=== PATIENT | female | born 1955 | race Caucasian/White ===

== ENCOUNTER → 2019-12-01 11:39 | Outpatient (BNVA) | payer OTHER, SELFPAY | PROVIDERS: Family Provider Nurse Practitioner Family; PCP Nurse Practitioner Family; Visit Provider Registered Nurse | DX: R06.02 Shortness of breath (principal) | CPT/HCPCS: 80053; 80061; 84484; 85025 ==

== ENCOUNTER → 2021-02-22 09:38 | Outpatient (BNVA) | payer MEDICARE, SELFPAY | PROVIDERS: Family Provider Nurse Practitioner Family; PCP Nurse Practitioner Family; Visit Provider Nurse Practitioner Family | DX: I10 Essential (primary) hypertension (principal); R60.9 Edema, unspecified | CPT/HCPCS: 80053; 80061 ==

== ENCOUNTER → 2021-05-03 09:58 | Outpatient (BNVA) | payer MEDICARE, SELFPAY | PROVIDERS: Family Provider Nurse Practitioner Family; PCP Nurse Practitioner Family; Visit Provider Nurse Practitioner Family | DX: R30.0 Dysuria (principal) | CPT/HCPCS: 81000; 87086 ==

== ENCOUNTER → 2021-09-10 08:58 | Outpatient (BNVA) | payer MEDICARE, SELFPAY | PROVIDERS: Family Provider Nurse Practitioner Family; PCP Nurse Practitioner Family; Visit Provider Nurse Practitioner Family | DX: R39.9 Unspecified symptoms and signs involving the genitourinary system (principal); M25.552 Pain in left hip; N39.0 Urinary tract infection, site not specified | CPT/HCPCS: 80048; 81000; 87086 ==

== ENCOUNTER 2021-11-05 08:51 | Outpatient (CLI) | payer MEDICARE, SELFPAY ==
--- NOTE | 2021-11-05 09:30 | US_ITS ---
WS: [id number] ULTRASOUND RENAL TECHNIQUE: Ultrasound examination of both kidneys. CLINICAL INFORMATION: R31.9 - Hematuria, unspecified COMPARISON: None. FINDINGS: RIGHT: Right kidney is normal in size and appearance. Echogenicity: Normal. Cortical thickness: 1.7 cm; Normal. Hydronephrosis: None. Perinephric fluid: None. Right kidney measures: 10.4 cm x 4.8 cm x 5.6 cm. LEFT: Left kidney is normal in size and appearance. Echogenicity: Normal. Cortical thickness: 1.5 cm; Normal. Hydronephrosis: None. Perinephric fluid: None. Left kidney measures: 10.7 cm x 4.2 cm x 4.5 cm. Normal visualized aorta. Prevoid bladder 28 cc Postvoid bladder 7 cc US/US renal BI with PV bladder IMPRESSION: 1. No hydronephrosis in either kidney. Bilateral ureteral jets visualized. 2. Postvoid bladder 7 cc.
== END 2021-11-05 08:52 | disposition home or self-care (01) ==
LOC: RAD 08:55
PROVIDERS: PCP Nurse Practitioner Family; Visit Provider Nurse Practitioner Family
DX: R31.9 Hematuria, unspecified (principal)
CPT/HCPCS: 76770; 76857

== ENCOUNTER → 2022-06-10 09:11 | Outpatient (BNVA) | payer MEDICARE, SELFPAY | PROVIDERS: PCP Nurse Practitioner Family; Visit Provider Nurse Practitioner Family | DX: I10 Essential (primary) hypertension (principal); R31.9 Hematuria, unspecified; R30.0 Dysuria | CPT/HCPCS: 80053; 80061; 81000; 87086 ==

== ENCOUNTER → 2022-06-12 10:10 | Outpatient (BNVA) | payer MEDICARE, SELFPAY | PROVIDERS: PCP Nurse Practitioner Family; Visit Provider Nurse Practitioner Family | DX: R73.09 Other abnormal glucose (principal) | CPT/HCPCS: 83036 ==

== ENCOUNTER → 2024-10-28 11:31 | Outpatient (BNVA) | payer MEDICARE, SELFPAY | PROVIDERS: PCP Nurse Practitioner Family; Visit Provider Nurse Practitioner Family | DX: I10 Essential (primary) hypertension (principal); R53.83 Other fatigue | CPT/HCPCS: 80053; 80061; 84439; 84443; 85025 ==

== ENCOUNTER 2024-11-03 13:40 | Outpatient (CLI) | payer MEDICARE, SELFPAY ==
--- NOTE | 2024-11-03 14:00 | MM_ITS ---
WS: [id number] BILATERAL SCREENING DIGITAL TOMOSYNTHESIS MAMMOGRAM WITH CAD HISTORY: Z12.39 - Encounter for other screening for malignant neop... COMPARISON: 03/20/2014 Bilateral CC and MLO views with tomosynthesis and synthetic mammography submitted. Computer aided det ection analyzed. Breast composition: There are scattered areas of fibroglandular density. No suspicious masses, microc alcifications or architectural distortion. Stable high density nodule upper outer quadrant RIGHT rebeca st since 2013. MM/MM scr BI tomosynthesis [id number] IMPRESSION: BI-RADS: 2 - Benign. FOLLOW UP: 1 Year Follow-up
--- NOTE | 2024-11-03 14:30 | XR_ITS ---
WS: [id number] SCREENING DEXA SCAN [employer] CLINICAL INFORMATION: M81.0 - Age-related osteoporosis without current patholog... COMPARISON: None. FINDINGS: The L1-L4 bone mineral density measures 0.846 g/cm2. This corresponds to a T score score of -2.8 and Z score of -1.5. Left femoral neck bone mineral density measures 0.721 g/cm2. This corresponds to a T score of -2.3 an d Z score of -1.1. Right femoral neck bone mineral density measures 0.692 g/cm2. This corresponds to a T score -2.5of an d Z score of -1.3. Mean femoral neck bone mineral density measures 0.706 g/cm2. This corresponds to a T score of -2.4 an d Z score of -1.2. XR/XR DEXA axial skeleton* [id number] IMPRESSION: Osteoporosis lumbar spine. Osteoporosis femoral necks. Patient's FRAX calculated 10 year probability for major osteoporotic fracture i s 26.8% and osteoporotic hip fracture is 8.4%.
== END 2024-11-03 13:41 | disposition home or self-care (01) ==
LOC: RAD 13:40
PROVIDERS: PCP Nurse Practitioner Family; Visit Provider Nurse Practitioner Family
DX: Z12.31 Encounter for screening mammogram for malignant neoplasm of breast (principal); R92.323 Mammographic fibroglandular density, bilateral breasts; N63.11 Unspecified lump in the right breast, upper outer quadrant; Z13.820 Encounter for screening for osteoporosis; M81.0 Age-related osteoporosis without current pathological fracture
CPT/HCPCS: 77063; 77067; 77080

== ENCOUNTER → 2025-06-06 14:17 | Outpatient (BNVA) | payer MEDICARE, SELFPAY | PROVIDERS: PCP Nurse Practitioner Family; Visit Provider Nurse Practitioner Family | DX: I10 Essential (primary) hypertension (principal); R53.83 Other fatigue | CPT/HCPCS: 80053; 80061; 85025 ==

== ENCOUNTER → 2025-08-29 10:21 | Outpatient (BNVA) | payer MEDICARE, SELFPAY | PROVIDERS: PCP Nurse Practitioner Family; Visit Provider Nurse Practitioner Family | DX: I10 Essential (primary) hypertension (principal); R73.09 Other abnormal glucose | CPT/HCPCS: 80053; 80061; 83036; 84443 ==

== ENCOUNTER 2025-09-20 01:43 | Inpatient (IN) | payer MEDICARE, SELFPAY ==
[2025-09-20] VITALS (62 sets, daily range): BP systolic 77–111; BP diastolic 44–82; PULSE 61–105; RESP 15–32; TEMP 37.1–38.2; O2SAT 88–96; BMI 30.9; BMI 32.7
--- NOTE | 2025-09-20 01:23 | XRR_ITS ---
PROCEDURE INFORMATION: Exam: XR Chest Exam date and time: 09/20/2025 1:41 AM Age: 70 years old Clinical indication: Shortness of breath TECHNIQUE: Imaging protocol: Radiologic exam of the chest. Views: 1 view. COMPARISON: No relevant prior studies available. FINDINGS: Lungs: Unremarkable. No consolidation. Pleural spaces: Unremarkable. No pleural effusion. No pneumothorax. Heart/Mediastinum: Unremarkable. No cardiomegaly. Bones/joints: Unremarkable. XR/XR chest 1V portable [id number] IMPRESSION: No acute findings.
--- OUTSIDE RECORDS SUMMARY | 2025-09-20 01:59 | XMS_ITS | Encounter Summary ---
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
--- OUTSIDE RECORDS SUMMARY | 2025-09-20 01:59 | XMS_ITS | Clinical Summary ---
Author Organization [facility] Address [address] [facility] Attn: Epic Prelude ADT FELIZ MCNAMARA, [place] [address] Care Team Providers Care Radiologic Electronic Specialist Name Role Phone Unavailable Primary Care Provider Unavailabl e Allergies Active Allergy Reactions Criticality Noted Date Comments Atorvastatin Muscle Pain Low 08/04/2022 Medications aspirin (ECOTRIN EC) 81 mg Tablet, Delayed Release (E.C.) Take 1 Tablet (81 mg) by mouth daily. 06/02/2022 Active sennosides (SENOKOT XTRA) 17.2 mg Tablet tablet Take 1 Tablet (17.2 mg) by mouth daily. 06/02/2022 Active spironolactone (ALDACTONE) 25 mg tablet Take 1 Tablet (25 mg) by mouth daily. 90 Tablet 3 12/16/2023 Active carvediloL (COREG) 6.25 mg tablet Take 1 Tablet (6.25 mg) by mouth every 12 hours. 180 Tablet 3 12/16/2023 Active lisinopriL (PRINIVIL) 20 mg tablet Take 1 Tablet (20 mg) by mouth 2 times daily. 180 Tablet 3 2024 Active Active Problems Problem Noted Date Diagnosed Date Type [address] elevatio n 05/31/2022 Passive smoke exposure 05/30/2022 Takotsubo cardiomyopathy 05/30/2022 Troponin level elevated 05/29/2022 Overview (05/30/2022): Added automatically from request for surgery [id number] Family history of acute myocardial infarction Overview (05/30/2022): Added automatically from request for surgery [id number] Dyslipidemia 05/29/2022 Overview (05/30/2022): Added automatically from request for surgery [id number] RHOADES (dyspnea on exertion) 05/29/2022 Overview (05/30/2022): Added automatically from request for surgery [id number] Chest pain 05/29/2022 Overview (05/30/2022): Added automatically from request for surgery [id number] Cystocele, midline 03/15/2008 Rectocele 03/15/2008 Essential hypertension Family History Medical History Relation Name Comments Diabetes Father Cancer Mother Relation Name Status Comments Father Mother Social History Tobacco Use Types Packs/Day Years Used Date Smoking Tobacco: Never Smokeless Tobacco: Never Tobacco Cessation:Counseling Given: Not Answered Alcohol Use Standard Drinks/Week Comments No 0 (1 standard drink = 0.6 oz pur e alcohol) Comments No Sex and Gender Information Value Date Recorded Sex Assigned at Not on file Legal Sex Female 2:46 AM SOLUTION ARCHITECT Gender Identity Not on file Sexual Orientation Not on file Last Filed Vital Signs Vital Sign Reading Time Taken Comments Blood Pressure 128/76 07/20/2024 9:30 AM CDT Pulse 84 07/20/2024 9:30 AM CDT Temperature 36.7 C (98 F) 06/01/2022 8:00 AM CDT Respiratory Rate 18 08/12/2022 12:35 PM CDT Oxygen Saturation 94% 08/12/2022 1:00 PM CDT Inhaled Oxygen Concentration - - Weight 82.6 kg (182 lb 3.2 oz) 07/20/2024 9:30 A M CDT Height 162.6 cm (5' 4 ) 07/20/2024 9:30 AM CDT Body Mass Index 31.27 07/20/2024 9:30 AM CDT Plan of Treatment Health Maintenance Due Date Last Done Comments DTAP/TDAP/TD VACCINES (1 - Tdap) 1973 BREAST CANCER SCREENING 1994 COLORECTAL SCREENING 1999 Colorectal Cancer Screening 1999 FIT-DNA Q 3 years 1999 FIT/FOBT Q 1 year 1999 Flex Sig/CT Colonography Q 5 years 1999 PNEUMOCOCCAL VACCINE 50+ YEARS (1 of 1 - PCV) 09/16/20 04 ZOSTER VACCINE (1 of 2) 2004 OSTEOPOROSIS SCREENING 2019 INFLUENZA VACCINE (#1) 2025 RSV VACCINE (60+ or ) (1 - 1-dose 75+ series) 2029 Medical Devices Implanted Type Area Can Labeler Device Identifier Shelf Expiration Date Model / Serial / Lot Closure Perclose Proglide [id number] - [id number] Implanted:Qty: 1 on 05/30/2022 at [facility] Closure Device Right: Coronary SHERIFF- VASC DEVICE 02/14/2024 [id number] / / [id number] Insurance [facility] MEDICARE HMO RX [facility] Medicare Part D Advance Directives For more information, please contact: [phone] * Full Code (Latest Code Status on File) Date Activated Date Inactivated Comments 05/30/2022 2:12 AM 06/01/2022 3:25 PM
--- OUTSIDE RECORDS SUMMARY | 2025-09-20 01:59 | XMS_ITS | Encounter Summary ---
Author Organization [facility] Address [address] [place] [address] Care Team Providers Care Metallography Teacher Name Role Phone Yola Larsen MD Primary Care Provider [phone] Encounter Details Date Type Department Care Team (Latest Contact Info) Description 02/19/2000 Outpatient Historical [facility] [address] [place] [phone] Luis Carranza DO [address] [place] [address] Acute sinusitis, unspecified (Primary Dx); Spasm of muscle; Nonallopathic lesion of cervical region, not elsewhere classified; Nonallopathic lesion of head region, not elsewhere classified Social History Tobacco Use Types Packs/Day Years Used Date Smoking Tobacco: Never Assessed Comments Unknown Sex and Gender Information Value Date Recorded Sex Assigned at Not on file 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 Gender Identity Not on file Sexual Orientation Not on file documented as of this encounter Plan of Treatment Not on file documented as of this encounter Visit Diagnoses Diagnosis Acute sinusitis, unspecified- Primary Spasm of muscle Nonallopathic lesion of cervical region, not elsewhere classified Nonallopathic lesion of head region, not elsewhere classified documented in this encounter Care Teams Metallography Teacher Relationship Specialty Start Date End Date Yola Larsen MD [address] [facility] [address] [place] [phone] PCP - General Family Practice 03/04/17 12/21/19 documented as of this encounter
--- OUTSIDE RECORDS SUMMARY | 2025-09-20 01:59 | XMS_ITS | Encounter Summary ---
Author Organization [facility] Address [address] [place] [address] Care Team Providers Care Vb Net Developer Name Role Phone Yola Larsen MD Primary Care Provider [phone] Encounter Details Date Type Department Care Team (Latest Contact Info) Description 09/13/2003 [facility]patient Historical [facility] Manuel Mack MD NO ADDRESS ON FILE SYMPTOMS IN BREAST NEC (Primary Dx) Social History Tobacco Use Types Packs/Day Years Used Date Smoking Tobacco: Never Assessed Comments Unknown Sex and Gender Information Value Date Recorded Sex Assigned at Not on file 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
--- OUTSIDE RECORDS SUMMARY | 2025-09-20 01:59 | XMS_ITS | Encounter Summary ---
Author Organization [facility] Address [address] [place] [address] Care Team Providers Care Test Engineering Technician Name Role Phone Yola Larsen MD Primary Care Provider [phone] Encounter Details Date Type Department Care Team (Latest Contact Info) Description 02/28/2000 Outpatient Historical [facility] [address] [place] [phone] Luis Carranza, [address] [place] [id number] Cervicalgia (Primary Dx); Edema; Acute sinusitis, unspecified Social History Tobacco Use Types Packs/Day Years Used Date Smoking Tobacco: Never Assessed Comments Unknown Sex and Gender Information Value Date Recorded Sex Assigned at Not on file 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
--- OUTSIDE RECORDS SUMMARY | 2025-09-20 01:59 | XMS_ITS | Encounter Summary ---
Author Organization [facility] Address [address] [place] [address] Care Team Providers Care Range Rider Name Role Phone Yola Larsen MD Primary Care Provider [phone] Encounter Details Date Type Department Care Team (Latest Contact Info) Description 02/12/2001 Outpatient Historical [facility] CASKET LINER 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
--- OUTSIDE RECORDS SUMMARY | 2025-09-20 01:59 | XMS_ITS | Clinical Summary ---
Author Organization [facility] Address [address] [place] [address] Care Team Providers Care Hrbp Name Role Phone Unavailable Primary Care Provider Unavailabl e Allergies No known active allergies Medications amLODIPine (NORVASC) 10 mg tablet Take 10 mg by mouth daily. Active polymyxin B sulf-trimethoprim (POLYTRIM) 10,000 unit- 1 mg/mL solutionIndicatio ns:Conjunctival hemorrhage, right Administer 1 Drop in both eyes every 4 hours. 10 mL 7 Active hydroCHLOROthiazi de (MICROZIDE) 12.5 mg capsuleIndication s:Essential hypertension Take 1 Capsule (12.5 mg) by mouth daily. 30 Capsule 2 7 Active Active Problems Problem Noted Date Diagnosed Date Rectocele 03/15/2008 Cystocele, midline 03/15/2008 Essential hypertension Family History Medical History Relation Name Comments Diabetes Father Cancer Mother Relation Name Status Comments Father Mother Social History Tobacco Use Types Packs/Day Years Used Date Smoking Tobacco: Never Smokeless Tobacco: Never Tobacco Cessation:Counseling Given: No Alcohol Use Standard Drinks/Week Comments No 0 (1 standard drink = 0.6 oz pur e alcohol) Comments No Sex and Gender Information Value Date Recorded Sex Assigned at Not on file Legal Sex Female 3:54 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 Gender Identity Not on file Sexual Orientation Not on file Occupation Industry Job Start Date Job End Date [employer] Not on file Not on file Not on file Last Filed Vital Signs Vital Sign Reading Time Taken Comments Blood Pressure 139/93 03/04/2017 3:41 PM CDT Pulse 84 03/04/2017 3:41 PM CDT Temperature 36.4 C (97.5 F) 03/04/2017 3:41 PM CDT Respiratory Rate 20 03/04/2017 3:41 PM CDT Oxygen Saturation 94% 03/04/2017 3:41 PM CDT Inhaled Oxygen Concentration - - Weight 88.5 kg (195 lb) 03/04/2017 3:41 PM CDT Height 157.5 cm (5' 2 ) 03/04/2017 3:41 PM CDT Body Mass Index 35.67 03/04/2017 3:41 PM CDT Plan of Treatment Health Maintenance Due [...] ) (1 - 1-dose 75+ series) 2029 Insurance [employer] OPEN ACCESS
--- OUTSIDE RECORDS SUMMARY | 2025-09-20 01:59 | XMS_ITS | Encounter Summary ---
Author Organization [facility] Address [address] [place] [address] Care Team Providers Care Surgical Forceps Fabricator Name Role Phone Yola Larsen MD Primary Care Provider [phone] Encounter Details Date Type Department Care Team (Latest Contact Info) Description 07/19/1999 Outpatient Historical [facility] [address] [address] Riri Moon MD NO ADDRESS ON FILE Nonspecific abnormal findings on radiological or other examinations of the breast (Primary Dx) Social History Tobacco Use Types Packs/Day Years Used Date Smoking Tobacco: Never Assessed Comments Unknown Sex and Gender Information Value Date Recorded Sex Assigned at Not on file Legal Sex Female 3:54 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
--- OUTSIDE RECORDS SUMMARY | 2025-09-20 01:59 | XMS_ITS | Encounter Summary ---
Author Organization [facility] Address [address] [place] [address] Care Team Providers Care Academic Registrar Name Role Phone Yola Larsen MD Primary Care Provider [phone] Encounter Details Date Type Department Care Team (Latest Contact Info) Description 09/13/2003 Outpatient Historical [facility] VOLUNTEER ASSISTANT 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
--- OUTSIDE RECORDS SUMMARY | 2025-09-20 01:59 | XMS_ITS | Encounter Summary ---
Author Organization [facility] Address [address] [place] [address] Care Team Providers Care Mime Artist Name Role Phone Yola Larsen MD Primary Care Provider [phone] Encounter Details Date Type Department Care Team (Late st Contact Info) Description 07/03/1999 Outpatient Historical [facility] [address] [address] Riri Moon MD NO ADDRESS ON FILE Other screening mammogram (Primary Dx) Social History Tobacco Use Types Packs/Day Years Used Date Smoking Tobacco: Never Assessed Comments Unknown Sex and Gender Information Value Date Recorded Sex Assigned at Not on file Legal Sex Female 3:54 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
--- OUTSIDE RECORDS SUMMARY | 2025-09-20 01:59 | XMS_ITS | Encounter Summary ---
Author Organization [facility] Address [address] [facility] Attn: Epic Prelude [place] [address] Care Team Providers Care Application Support Technician Name Role Phone Yola Larsen MD Primary Care Provider [phone] Encounter Details Date Type Department Care Team (Late st Contact Info) Description 03/15/2008 Outpatient Historical Manuel Mack MD NO ADDRESS ON FILE Routine Gynecological Examination Social History Tobacco Use Types Packs/Day Years Used Date Smoking Tobacco: Never Alcohol Use Standard Drinks/Week Comments No 0 (1 standard drink = 0.6 oz pur e alcohol) Comments No Sex and Gender Information Value Date Recorded Sex Assigned at Not on file Legal Sex Female 3:54 AM 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 GRAY CLOTH TENDER Gender Identity Not on file Sexual Orientation Not on file 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 Not on file Not on file documented as of this encounter Plan of Treatment Not on file documented as of this encounter Procedures Procedure Name Priority Date/Time Associated Diagnosis Comments PATHOLOGY Routine 03/15/2008 7:14 AM CDT documented in this encounter Results * PATHOLOGY (03/15/2008 7:14 AM CDT) PATHOLOGY/CY TOLOGY REPORT [facility] Anatomic Pathology Dept [facility] [place] [address] Patient: JERI BOWLING Accn No: [id number] Collected: 03/15/2008 7:14:00 AM CYTOLOGY ORTHOPEDIC SHOE MAKER FINAL REPORT - - POULTRY PICKER PAP History Specimen Source: Endocervical/Cervic al LMP: 10/2007 Last Pap Date: 2003 WNL V72.31 Specimen Adequacy Satisfactory for interpretation. The smear shows sufficient numbers of endocervical or metaplastic cells. Diagnosis NEGATIVE FOR INTRAEPITHELIAL LESION OR MALIGNANCY. (Previously noted as Within Normal Limits) Arts Manager SFF 03/16/08 Completed by: Trisha Escobar (ASCP) (Electronically signed by) 03/16/08 Comment Routine follow-up is suggested. Important Info About Pap Smears HPV Testing off the Thin Prep vial can be done as a means of further evaluating a Thin Prep Report. For information about ordering the HPV test, phone Cytology at . Treatment or follow-up recommendations (if any) that are considered within this report are based upon general recommendations as contained in 2001 Consensus Guidelines For Cervical Cytological Abnormalities [place]: March 09, 2002, and are provided as a general guideline rather than as a specific recommendation. Final decisions about the most appropriate treatment and follow-up should be made on an individualized basis by the treating physician in consultation with his/her patient. INTERFACE SYSTEM 03/15/2008 7:14 AM CDT us Manuel Mack MD PATHOLOGY/CYTOLOGY OR DERABLES Final Result INTERFACE SYSTEM Refer to clinic/hospital department documented in this encounter Visit Diagnoses Diagnosis Routine gynecological examination documented in this encounter Care Teams Application Support Technician Relationship Specialty Start Date End Date Yola Larsen MD [address] [phone] PCP - General Family Practice 03/04/17 12/21/19 documented as of this encounter
--- OUTSIDE RECORDS SUMMARY | 2025-09-20 01:59 | XMS_ITS | Encounter Summary ---
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 Pulse: 0. Not dictated. BP: 130/100. CHIEF COMPLAINT: Elevated blood pressure. SUBJECTIVE: States she is been under a lot of pressure and stress. States that her daughter recently has had a separation from her , and she is having great difficulty since that period of time. OBJECTIVE: GENERAL: A 52-year-old white female, alert and oriented x3, in no acute distress. SKIN: Warm and dry. Color pink. HEENT: Within normal limits. NECK: Supple. LUNGS: Clear. HEART: S1-S2 clear. Regular rate and rhythm. No murmur noted. ABDOMEN: Soft and round. Bowel sounds are present x4 quadrants. No tenderness and no organomegaly is noted. ASSESSMENT: Hypertension. PLAN: 1. The patient was provided teaching on hypertension. 2. Will increase fluids. 3. She was started on HCTZ, 25 mg, [address] Emanuel. She will continue this medication. 4. Return next week for recheck on her blood pressure. 5. The patient verbalized understanding and is in agreement with the plan of care. LUCIANO Dolan D.O. [facility] Electronically Signed by LUCIANO Dolan 12/24/2007 16:58 , P, mdlor Document #: [id number] cc: AL AGENT documented in this encounter Plan of Treatment Not on file documented as of this encounter Visit Diagnoses Not on filedocumented in this encounter Care Teams Crate Repairer Relationship Specialty Start Date End Date Yola Larsen MD [address] [phone] PCP - General Family Practice 03/04/17 12/21/19 documented as of this encounter
--- OUTSIDE RECORDS SUMMARY | 2025-09-20 01:59 | XMS_ITS | Encounter Summary ---
Author Organization [facility] Address [address] [place] [address] Care Team Providers Care Lift Operator Name Role Phone Yola Larsen MD Primary Care Provider [phone] Encounter Details Date Type Department Care Team (Latest Contact Info) Description 12/18/2000 Outpatient Historical [facility] Medicine [place] [address] [address] Judson Emanuel DO NO ADDRESS ON FILE Pain in joint, shoulder region (Primary Dx) Social History Tobacco Use Types Packs/Day Years Used Date Smoking Tobacco: Never Assessed Comments Unknown Sex and Gender Information Value Date Recorded Sex Assigned at Not on file 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
--- OUTSIDE RECORDS SUMMARY | 2025-09-20 01:59 | XMS_ITS | Encounter Summary ---
Author Organization [facility] Address [address] [place] [address] Care Team Providers Care Diet Clerk Name Role Phone Yola Larsen MD Primary Care Provider [phone] Encounter Details Date Type Department Care Team (Late st Contact Info) Description 02/12/2001 Outpatient Historical [facility] [address] [address] Riri Moon MD NO ADDRESS ON FILE Mastodynia (Primary Dx) Social History Tobacco Use Types Packs/Day Years Used Date Smoking Tobacco: Never Assessed Comments Unknown Sex and Gender Information Value Date Recorded Sex Assigned at Not on file 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
--- OUTSIDE RECORDS SUMMARY | 2025-09-20 01:59 | XMS_ITS | Encounter Summary ---
Author Organization [facility] Address [address] [place] [address] Care Team Providers Care District Plant Superintendent Name Role Phone Yola Larsen MD Primary Care Provider [phone] Encounter Details Date Type Department Care Team (Latest Contact Info) Description 09/13/1999 Outpatient Historical [facility] Gen Spec [facility]urg [place] [address] [place] [address] Yaniv Shepherd MD [address] [place] [address] Diffus cystic mastopathy (Primary Dx) Social History Tobacco Use Types Packs/Day Years Used Date Smoking Tobacco: Never Assessed Comments Unknown Sex and Gender Information Value Date Recorded Sex Assigned at Not on file Legal Sex Female 3:54 AM HAND BUTTON SPLITTER Gender Identity Not on file Sexual Orientation Not on file documented as of this encounter Plan of Treatment Not on file documented as of this encounter Visit Diagnoses Diagnosis Diffus cystic mastopathy- Primary Diffuse cystic mastopathy documented in this encounter Care Teams District Plant Superintendent Relationship Specialty Start Date End Date Yola Larsen MD [address] [phone] PCP - General Family Practice 03/04/17 12/21/19 documented as of this encounter
--- OUTSIDE RECORDS SUMMARY | 2025-09-20 01:59 | XMS_ITS | Encounter Summary ---
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
--- OUTSIDE RECORDS SUMMARY | 2025-09-20 01:59 | XMS_ITS | Encounter Summary ---
Author Organization [facility] Address [address] [place] [address] Care Team Providers Care Gravity Prospector Name Role Phone Yola Larsen MD Primary Care Provider [phone] Encounter Details Date Type Department Care Team (Latest Contact Info) Description 09/13/2003 Outpatient Historical [facility] [address] [address] Jackie Velasco MD NO ADDRESS ON FILE LUMP OR MASS IN BREAST (Primary Dx) Social History Tobacco Use Types Packs/Day Years Used Date Smoking Tobacco: Never Assessed Comments Unknown Sex and Gender Information Value Date Recorded Sex Assigned at Not on file 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
--- OUTSIDE RECORDS SUMMARY | 2025-09-20 01:59 | XMS_ITS | Encounter Summary ---
Author Organization [facility] Address [address] [place] [address] Care Team Providers Care House Piping Inspector Name Role Phone Yola Larsen MD Primary Care Provider [phone] Encounter Details Date Type Department Care Team (Latest Contact Info) Description 07/16/1999 Outpatient Historical [facility] Manuel Mack MD NO ADDRESS ON FILE Gynecologic examination (Primary Dx); Symptomatic menopausal or female climacteric states Social History Tobacco Use Types Packs/Day Years Used Date Smoking Tobacco: Never Assessed Comments Unknown Sex and Gender Information Value Date Recorded Sex Assigned at Not on file Legal Sex Female 3:54 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
--- OUTSIDE RECORDS SUMMARY | 2025-09-20 01:59 | XMS_ITS | Encounter Summary ---
Author Organization [facility] Address [address] [place] [address] Care Team Providers Care Gaggerman Name Role Phone Yola Larsen MD Primary Care Provider [phone] Encounter Details Date Type Department Care Team (Latest Contact Info) Description 02/12/2000 Outpatient Historical [facility] [address] [place] [phone] Luis Carranza, [address] [place] [address] Acute sinusitis, unspecified (Primary Dx); Headache(784.0) Social History Tobacco Use Types Packs/Day Years Used Date Smoking Tobacco: Never Assessed Comments Unknown Sex and Gender Information Value Date Recorded Sex Assigned at Not on file 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
[2025-09-20 02:15] LABS: Hematocrit 42.9 % (36-47); Hemoglobin 14.10 g/dL (11.27-16.99); Mean Corpuscular HGB Conc 32.9 g/dL (30-55); Mean Corpuscular Hemoglobin 30.3 pg (27-33); Mean Corpuscular Volume 92.1 fl (85-98); Nucleated Red Blood Cells % 0 %; Platelet Count 172 10^3/cmm (157-399); Red Blood Count 4.66 10^6/uL (3.85-5.65); White Blood Count 7.04 10^3/uL (3.29-11.43)
[2025-09-20 02:31] LABS: Troponin(5th) Baseline 47 ng/L (0-10)
[2025-09-20 02:41] LABS: NT Pro B Type Natriuretic Pept 819 pg/mL (0-125); Procalcitonin 5.81 ng/mL (0-0.5)
[2025-09-20 02:53] LABS: Alanine Aminotransferase 13 U/L (0-33); Albumin Level 3.6 g/dL (3.5-5.2); Alkaline Phosphatase 60 U/L (35-105); Anion Gap 18.7 (5-19); Aspartate Amino Transferase 14 U/L (0-32); Blood Urea Nitrogen 18 mg/dL (8-23); Calcium 8.1 mg/dL (8.5-10.5); Carbon Dioxide 17 mmol/L (22-29); Chloride 106 mmol/L (98-107); Globulin 1.7 g/dL (1.3-4.6); Glucose 118 mg/dL (65-115); Lipase 39 U/L (13-60); Magnesium 1.5 mg/dL (1.7-2.3); Osmolality Calculated 289 mOsm/kg (285-295); Potassium 3.7 mmol/L (3.5-5.1); Sodium 138 mmol/L (136-145); Total Protein 5.3 g/dL (6.6-8.7)
[2025-09-20 02:55] LABS: Lactic Sepsis W/Reflex 5.3 mmol/L (0.5-2.2)
--- NOTE | 2025-09-20 03:01 | ED_ITS ---
HPI - General Adult 2 General: Chief complaint: Nausea/Vomiting/Diarrhea Stated complaint: flu like symptoms History of Present Illness: Patient is a 70-year-old female with past medical history of hypertension and osteoporosis presents with a chief complaint of feeling unwell since yesterday. Patient has not had a fever but she states she has been chilled. Patient denies chest pain but has been feeling short of breath, no productive cough or hemoptysis. She has been feeling lightheaded but no syncope, lower extremity edema or swelling. Patient reports some right sided abdominal discomfort. She has also been experiencing nausea and vomiting and diarrhea, though no blood in stool. She denies urinary symptoms. Related Data Previous Rx's ?Medication ?Instructions ?Recorded alendronate 70 mg tablet (Fosamax) 70 mg PO .weekly #4 tabs 06/06/25 lisinopril 20 mg tablet See Rx Instructions .Route 0 06/06/25 .COMPLEX #180 tabs spironolactone 25 mg tablet 25 mg PO DAILY #90 tabs carvedilol 6.25 mg tablet 6.25 mg PO DAILY #90 tabs Allergies Allergy/AdvReac Type Severity Reaction Status Date / Time No Known Allergies Allergy Verified 08/29/25 14:21 [facility] ED 2 [facility]: Medical History (Updated 09/20/25 @ 04:28 by Alessia Smith MD) Hypertension Family History Mother Heart problem Father Cancer Social History Smoking and tobacco/nicotine status: never used tobacco/nicotine Alcohol intake: current Physical Exam 2 Narrative: EXAM NARRATIVE: Vital signs were reviewed. Patient is alert and oriented. Patient is breathing comfortably on 2L NC and does not feel short of breath now. Patient has clear lungs b/l, no rhonchi, wheezing or crackles aside from R axilla, where she has fine crackles/mild rhonchi. No hypotension but patient is tachycardic. Abdomen is soft, nondistended, mild tenderness in the RLQ. Patient is moving all extremities, no deformity or gross injury. No lower extremity edema or asymmetry. Course 2 Vital Signs: Vital signs: Vital Signs Temperature 100.1 F H 09/20/25 02:18 Pulse Rate 94 09/20/25 04:21 Respiratory Rate 16 09/20/25 04:21 Blood Pressure 93/62 09/20/25 04:21 Pulse Oximetry 92 09/20/25 04:21 Oxygen Delivery Me thod Nasal Cannula 09/20/25 04:21 Oxygen Flow Rate 1 09/20/25 04:21 [facility] - General Adult Medical Decision Making Patient is a 70-year-old female with a history of high blood pressure and osteoporosis presents with a chief complaint of feeling ill, shortness of breath, new oxygen requirement, nausea, vomiting, diarrhea, right lower quadrant abdominal pain. Differential diagnosis is broad and includes viral upper respiratory infection, pneumonia, PE, ACS, pancreatitis, cholecystitis, gastroenteritis, appendicitis, urinary tract infection, kidney stone, urosepsis, sepsis, other. On exam, she is normotensive, tachycardic and febrile. She is needing oxygen. She is comfortable on 2 to 3 L per nasal cannula. She was treated with IV fluids and Tylenol with improvement in heart rate. She remains normotensive. Patient was evaluate lab work including CBC, CMP, lactic acid, procalcitonin, lipase, troponin, BNP, UA, blood culture, urine culture, chest x- ray, COVID and flu screen, CT PE, CT abdomen pelvis with IV contrast. She has a normal white blood cell count and is not anemic. Creatinine is elevated and appears to be baseline. She has a normal potassium but is quite hypomagnesemic. Patient has an elevated lactic acid, procalcitonin, elevated BNP and elevated troponin; this is consistent w/NSTEMI as there is no STEMI and she denies chest pain. Given fever, elevated lactic acid, procalcitonin, she was treated w/broad spectrum IV antibiotics. CT imaging shows multilobar pna and appendicitis. Discussed w/surgeon production assembly supervisor, who recommended ICU admission. Lab Data 09/20/25 02:00 09/20/25 02:00 Radiology Impressions Chest X-Ray 09/20/25 01:23 IMPRESSION: No acute findings. Chest/Abdomen/Pelvis CT 09/20/25 03:09 IMPRESSION: 1. Mild consolidations at the lung bases, concerning for mild multilobar pneumonia. Superimposed atelectasis. No pleural effusion or pneumothorax. 2. No pulmonary embolism. IMPRESSION: Positive for appendicitis, consisting of a distended appendix, measuring up to 11 mm, with mild-moderate surrounding inflammation. COMMENTS: Consistent with the [employer]'s Incidental Findings Committee white paper (J Am Ellis Radiol 2018): Any incidental renal lesion less than 1 cm or classified as too small to characterize, or any incidental cystic renal lesion characterized as simple-appearing, is likely benign. No follow-up imaging is recommended for these lesions per consensus recommendations based on imaging criteria. Laboratory Results WBC 7.04 10^3/uL (3.29-11.43) 09/20/25 02:00 RBC 4.66 10^6/uL (3.85-5.65) 09/20/25 02:00 Hgb 14.10 g/dL (11.27-16.99) 09/20/25 02:00 Hct 42.9 % (36-47) 09/20/25 02:00 MCV 92.1 fl (85-98) 09/20/25 02:00 MCH 30.3 pg (27-33) 09/20/25 02:00 MCHC 32.9 g/dL (30-55) 09/20/25 02:00 RDW 12.9 % (12.1-15.1) 09/20/25 02:00 Plt Count 172 10^3/cmm (157-399) 09/20/25 02:00 MPV 10.7 fL (7.4-10.4) H 09/20/25 02:00 Neut % (Auto) 94.4 % 09/20/25 02:00 Lymph % (Auto) 4.3 % 09/20/25 02:00 Powell % (Auto) 0.4 % 09/20/25 02:00 Eos % (Auto) 0.0 % 09/20/25 02:00 Baso % (Auto) 0.3 % 09/20/25 02:00 Neut # (Auto) 6.65 10^3/uL (1.8-7.7) 09/20/25 02:00 Lymph # (Auto) 0.3 10^3/uL (0.8-4.8) L 09/20/25 02:00 Powell # (Auto) 0.0 10^3/uL (0.2-0.9) L 09/20/25 02:00 Eos # (Auto) 0.0 10^3/uL (0.0-0.8) 09/20/25 02:00 Baso # (Auto) 0.0 10^3/uL (0.0-0.1) 09/20/25 02:00 Nucleated RBC % (auto) 0 % 09/20/25 02:00 Nucleated RBCs # 0.0 /100WBC 09/20/25 02:00 Sodium 138 mmol/L (136-145) 09/20/25 02:00 Potassium 3.7 mmol/L (3.5-5.1) 09/20/25 02:00 Chloride 106 mmol/L (98-107) 09/20/25 02:00 Carbon Dioxide 17 mmol/L (22-29) L 09/20/25 02:00 Anion Gap 18.7 (5-19) 09/20/25 02:00 BUN 18 mg/dL (8-23) 09/20/25 02:00 Creatinine 1.2 mg/dL (0.5-0.9) H 09/20/25 02:00 GFR Calculation Not Reportable 09/20/25 02:00 Glucose 118 mg/dL (65-115) H 09/20/25 02:00 Calculated Osmolality 289 mOsm/kg (285-295) 09/20/25 02:00 Lactic Acid 5.3 mmol/L (0.5-2.2) H* 09/20/25 02:00 Calcium 8.1 mg/dL (8.5-10.5) L 09/20/25 02:00 Magnesium 1.5 mg/dL (1.7-2.3) L 09/20/25 02:00 Total Bilirubin 0.8 mg/dL (0.15-1.2) 09/20/25 02:00 AST 14 U/L (0-32) 09/20/25 02:00 ALT 13 U/L (0-33) 09/20/25 02:00 Alkaline Phosphatase 60 U/L (35-105) 09/20/25 02:00 Troponin T Baseline 47 ng/L (0-10) H 09/20/25 02:00 Troponin T 120 Minute 60.93 ng/L (0-10) H 09/20/25 03:40 Delta Troponin T 13.93 ABS# (0-10) H* 09/20/25 03:40 NT-Pro-B Natriuret Pep 819 pg/mL (0-125) H 09/20/25 02:00 Total Protein 5.3 g/dL (6.6-8.7) L 09/20/25 02:00 Albumin 3.6 g/dL (3.5-5.2) 09/20/25 02:00 Globulin 1.7 g/dL (1.3-4.6) 09/20/25 02:00 Lipase 39 U/L (13-60) 09/20/25 02:00 Procalcitonin 5.81 ng/mL (0-0.5) H 09/20/25 02:00 Urine Color Yellow (Yellow) 09/20/25 03:04 Urine Appearance Clear (CLEAR) 09/20/25 03:04 Urine pH 6.0 (5-7) 09/20/25 03:04 Ur Specific [place] 1.019 (1.005-1.030) 09/20/25 03:04 Urine Protein Trace (Negative) A 09/20/25 03:04 Urine Glucose (UA) Negative (Normal) 09/20/25 03:04 Urine Ketones Negative (Negative) 09/20/25 03:04 Urine Blood Negative (Negative) 09/20/25 03:04 Urine Nitrate Negative (Negative) 09/20/25 03:04 Urine Bilirubin Negative (Negative) 09/20/25 03:04 Urine Urobilinogen 1.0 mg/dL (Negative) 09/20/25 03:04 Ur Leukocyte Esterase Negative (Negative) 09/20/25 03:04 Urine RBC 0-2 /hpf (0-2) 09/20/25 03:04 Urine WBC 0-5 /hpf (0-5) 09/20/25 03:04 Ur Squamous Epith Cells 0-5 /hpf (0-5) 09/20/25 03:04 Amorphous Sediment Not Reportable 09/20/25 03:04 Urine Bacteria None seen /hpf (NONE) 09/20/25 03:04 Hyaline Casts 2.46 /lpf 09/20/25 03:04 All radiology interpretation(s) finalized by discharge EKG Data EKG 1: Interpretation: Normal sinus rhythm with a heart rate of 97, left axis deviation, prolonged QRS, normal QT/QTc, no STEMI. No previous EKG is available for comparison. Computer generated interpretation: Chest X-Ray 09/20/25 01:23 IMPRESSION: No acute findings. Chest/Abdomen/Pelvis CT 09/20/25 03:09 IMPRESSION: 1. Mild consolidations at the lung bases, concerning for mild multilobar pneumonia. Superimposed atelectasis. No pleural effusion or pneumothorax. 2. No pulmonary embolism. IMPRESSION: Positive for appendicitis, consisting of a distended appendix, measuring up to 11 mm, with mild-moderate surrounding inflammation. COMMENTS: Consistent with the [employer]'s Incidental Findings Committee white paper (J Am Ellis Radiol 2018): Any incidental renal lesion less than 1 cm or classified as too small to characterize, or any incidental cystic renal lesion characterized as simple-appearing, is likely benign. No follow-up imaging is recommended for these lesions per consensus recommendations based on imaging criteria. Discharge Plan Discharge Patient Disposition: Admitted As Inpatient Clinical Impression: Sepsis, Pneumonia, Acute appendicitis, Non-ST elevation [place] (NSTEMI), Hypomagnesemia Condition: Stable Coding Level of Care Code ED Home School Liaison Officer for Darien Dockery
--- NOTE | 2025-09-20 03:09 | CTR_ITS ---
PROCEDURE INFORMATION: Exam: CTA Chest With Contrast Exam date and time: 09/20/2025 3:31 AM Age: 70 years old Clinical indication: Abdominal pain; Other: Hypoxia; Additional info: Hypoxia, tachycardia, relative hypotension, rlq pain TECHNIQUE: Imaging protocol: Computed tomographic angiography of the chest with contrast. Exam focused on the arteries. 3D rendering (Not supervised by radiologist): MIP and/or 3D reconstructed images were created by the technologist. Radiation optimization: All CT scans at this facility use at least one of these dose optimization techniques: automated exposure control; mA and/or kV adjustment per patient size (includes targeted exams where dose is matched to clinical indication); or iterative reconstruction. Contrast material: OMNI 350; Contrast volume: 100 ml; Contrast route: INTRAVENOUS (IV); COMPARISON: CR (CHEST, ) 09/20/2025 1:41 AM RADIATION DOSE METRICS: Total DLP (mGy-cm): 1330.38 FINDINGS: Pulmonary arteries: No pulmonary embolism. Aorta: Atherosclerotic changes of the aorta. Lungs: Mild consolidations at the lung bases, concerning for mild multilobar pneumonia. Superimposed atelectasis. No pleural effusion or pneumothorax. Pleural spaces: See Lungs finding. Heart: Unremarkable. No cardiomegaly. No pericardial effusion. Lymph nodes: Unremarkable. No enlarged lymph nodes. Bones/joints: Degenerative changes of the spine. Soft tissues: Unremarkable. PROCEDURE INFORMATION: Exam: CT Abdomen And Pelvis With Contrast Exam date and time: 09/20/2025 3:31 AM Age: 70 years old Clinical indication: Abdominal pain; Other: Hypoxia; Additional info: Hypoxia, tachycardia, relative hypotension, rlq pain TECHNIQUE: Imaging protocol: Computed tomography of the abdomen and pelvis with contrast. Radiation optimization: All CT scans at this facility use at least one of these dose optimization techniques: automated exposure control; mA and/or kV adjustment per patient size (includes targeted exams where dose is matched to clinical indication); or iterative reconstruction. Contrast material: OMNI 350; Contrast volume: 100 ml; Contrast route: INTRAVENOUS (IV); COMPARISON: US renal BI w/PV bladder [id number] 11/05/2021 9:11 AM RADIATION DOSE METRICS: Total DLP (mGy-cm): 1330.38 FINDINGS: Liver: Hepatic steatosis. Gallbladder and biliary ducts: Normal. No calcified stones. No ductal dilation. Pancreas: Normal. No ductal dilation. Spleen: Normal. No splenomegaly. Adrenal glands: Normal. No mass. Kidneys and ureters: Left renal cyst measures 2.7 cm. Stomach and bowel: Unremarkable. No obstruction. No mucosal thickening. Appendix: Positive for appendicitis, consisting of a distended appendix, measuring up to 11 mm, with mild-moderate surrounding inflammation. Intraperitoneal space: Unremarkable. No free air. No significant fluid collection. Vasculature: Atherosclerotic changes of the aorta. Lymph nodes: Unremarkable. No enlarged lymph nodes. Urinary bladder: Unremarkable as visualized. Reproductive: Unremarkable as visualized. Bones/joints: Degenerative changes of the spine. Soft tissues: Unremarkable. CT/CT angio chest w abd pel w con IMPRESSION: 1. Mild consolidations at the lung bases, concerning for mild multilobar pneumonia. Superimposed atelectasis. No pleural effusion or pneumothorax. 2. No pulmonary embolism. IMPRESSION: Positive for appendicitis, consisting of a distended appendix, measuring up to 11 mm, with mild-moderate surrounding inflammation. COMMENTS: Consistent with the [employer]'s Incidental Findings Committee white paper (J Am Ellis Radiol 2018): Any incidental renal lesion less than 1 cm or classified as too small to characterize, or any incidental cystic renal lesion characterized as simple-appearing, is likely benign. No follow-up imaging is recommended for these lesions per consensus recommendations based on imaging criteria.
[2025-09-20 03:13] LABS: Glucose Urine UA Negative (Normal); Nitrate Urine Negative (Negative); Specific Gravity, Urine 1.019 (1.005-1.030)
--- NOTE | 2025-09-20 03:17 | ECG_ITS ---
[facility] [employer] Test Date: 2025-09-20 Pat Name: Jeri Bowling Department: Room: Gender: Female Mangle Tender: : 1955 Requested By: Alessia Smith Order Number: [id number] Jeremy MD: Anthony Cantrell M.D. Measurements Intervals [place] Rate: 97 P: 32 LA: 198 QRS: -42 QRSD: 104 T: 12 QT: 358 QTc: 456 Interpretive Statements SINUS RHYTHM POSSIBLE LEFT ATRIAL ENLARGEMENT [-0.1mV P-WAVE IN V1/V2] PATTERN CONSISTENT WITH PULMONARY DISEASE INCOMPLETE RIGHT BUNDLE BRANCH BLOCK [90+ ms QRS DURATION, TERMINAL R IN V1/V2, 40+ ms S IN I/aVL/V4/V5/V6] INFERIOR MYOCARDIAL INFARCTION , PROBABLY OLD [40+ ms Q WAVE AND/OR ST/T ABNORMALITY IN II/aVF] No previous ECG available for comparison Electronically Signed On 09-20-2025 23:56:12 EDUCATIONAL CONSULTANT by Anthony Cantrell M.D. [id number]
[2025-09-20 03:18] LABS: Add Urine Microscopic? YES
[2025-09-20] MEDS: iohexol 350 mg/mL 500 mL Btl (per mL) IV (03:44)
[2025-09-20] MEDS: piperacillin-tazobactam 4.5 GM in sodium chloride 0.9% (plus) 50 ML IV (03:50)
[2025-09-20 03:59] LABS: Reflex Lactate Order REFLEX LACTIC ORDERD
[2025-09-20] MEDS: magnesium sulfate premix 2 GM/50 ML PIGGYBACK IV (04:19)
[2025-09-20 04:29] LABS: Respiratory Syncytial Virus Ce NEGATIVE (Negative); SARS-CoV-2 PCR NEGATIVE (Negative)
--- NOTE | 2025-09-20 05:01 | PM.HP ---
Providers/Chief Complaint Admitting Physician: bety gastelum do--- admitted after 12 midnight Primary Care Provider: STELLA Galvin Chief Complaint: flu like symptoms History of Present Illness Jeri Bowling is a 70 year old female with medical history significant for morbid obesity, hypertension, osteoporosis who presented to the emergency room with history of febrile illness with associated nausea and vomiting with nausea. Patient had been coughing cough prior to her presentation to the hospital. She presented to the emergency room for further evaluation. Upon evaluation lactic acid was elevated at 5.3 procalcitonin elevated at 6. Patient was never hypotensive in the emergency room and received a liter of fluid normal saline and route and a liter in the emergency room. Patient has been pancultured and had been given Zosyn and vancomycin in the emergency room. I would like for patient to be placed in ICU. Patient indeed does have sepsis Imaging has shown a radiographic sign of acute appendicitis the emergency room attending had spoken to the surgeon on-call reference acute appendicitis, the surgeon wanted the patient be admitted to hospitalist service and he will call and follow-up in the morning . Review of Systems Narrative: System review upon ten ogram review were significant for gastrointestinal disorder with nausea vomiting and radiographic sign of acute appendicitis Medications/Allergies Home Medications ?Medication ?Instructions ?Recorded ?Confirmed ?Last Taken ?Type alendronate 70 mg tablet (Fosamax) 70 mg PO .weekly #4 tabs 06/06/25 08/29/25 Unknown Rx lisinopril 20 mg tablet See Rx Instructions .Route 06/06/25 08/29/25 Unknown Rx .COMPLEX #180 tabs spironolactone 25 mg tablet 25 mg PO DAILY #90 tabs 06/06/25 08/29/25 Unknown Rx carvedilol 6.25 mg tablet 6.25 mg PO DAILY #90 tabs 08/28/25 08/29/25 Unknown Rx Allergies Allergy/AdvReac Type Severity Reaction Status Date / Time No Known Allergies Allergy Verified 08/29/25 14:21 PFSH Acute PFSH: Medical History Hypertension Family History Mother Heart problem Father Cancer Social History Smoking and tobacco/nicotine status: never used tobacco/nicotine Alcohol intake: current Vitals/I&O/Wt Last Vital Signs Temp 100.1 F H 09/20/25 02:18 Pulse 94 09/20/25 04:21 Resp 16 09/20/25 04:21 BP 93/62 09/20/25 04:21 Pulse Ox 92 09/20/25 04:21 O2 Del Method Nasal Cannula 09/20/25 04:21 O2 Flow Rate 1 09/20/25 04:21 09/19/25 09/19/25 09/20/25 14:59 22:59 06:59 Intake Total 1050 / 1050 Balance 1050 / 1050 Weight last 48 hrs Weight 81.647 kg Physical Exam Narrative: Generally patient is doing well lying still in bed seems to be holding on did point to right lower quadrant pain and I instructed for her not to push on it patient does have acute appendicitis HEENT normocephalic/atraumatic neck neck is supple cardiovascular heart rate is regular lungs are pretty much clear abdomen soft nontender nondistended unremarkable extremities are intact no edema has good pulses neurology he has no focality lab studies lab studies reviewed and noted. Data 09/20/25 02:00 09/20/25 02:00 Micro: Microbiology 09/20/25 01:55 Blood Culture - Preliminary Blood SPECIMEN COLLECTED 09/20/25 02:00 Blood Culture - Preliminary Blood SPECIMEN COLLECTED A&P Assessment and plan 1. Sepsis: 2. Acute appendicitis: 3. Pneumonia: 4. Non-ST elevation SD (NSTEMI): 5. Hypomagnesemia: 6. Obesity (BMI 30-39.9): 7. Osteoporosis: 8. Hypertension: Plan: Sepsis - Admit to ICU because of multiple acute medical problems - Patient with febrile illness with normal blood pressure 2 L of fluid given normal saline given - -The player of sepsis as follows patient pneumonia and acute appendicitis - Antibiotics empirically started Zosyn and vancomycin - Patient be optimized prior to surgery if we can help it Lactic acidosis at 5.3 -Continue gentle hydration and antibiotics Elevated procalcitonin at 6 -Continue antibiotics and hydration for ongoing support Non-STEMI -Cardiology informed however patient is with no chest pains -Patient in the setting of infection cannot to much of any procedure if need be at this time Pneumonia -Continue empiric antibiotics of vancomycin and Zosyn at this time - Patient appear to be stable will await surgical team to see the patient timing is of the essence in the setting of sepsis Hypomagnesemia at 1. 5 Replaced in the ED GI and DVT prophylaxis in place - PDMP PDMP Reviewed: Not Reviewed Attestations Medical Necessity Statement*: Patient with acute appendicitis with nausea vomiting febrile illness pneumonia need to have at least 2 midnights to optimize Coding Level of Care Code 75416 Diagnoses Sepsis A41.9 Acute appendicitis K35.80 Pneumonia J18.9 Non-ST elevation SD (NSTEMI) I21.4 Hypomagnesemia E83.42 Obesity (BMI 30-39.9) E66.9 Osteoporosis M81.0 Hypertension I10 Time Spent (min) 70
[2025-09-20 06:20] LABS: Lactic Acid level (Lactate) 1.5 mmol/L (0.5-2.2)
--- NOTE | 2025-09-20 07:01 | PC.NURSE ---
THIS NURSE ASSUMED CARE @ 2049.
--- NOTE | 2025-09-20 07:05 | PM.CONSULT ---
Providers/Reason For Consult Consulting Physician/Specialty*: Dr. Miller general surgery Reason for Consult*: Appendicitis Attending Physician: Bety Sweeney MD Primary Care Provider: STELLA Galvin History of Present Illness History of Present Illness Jeri Bowling is a 70 year old female who presents with several days of right lower quadrant pain. Patient was also diagnosed with pneumonia on admission. Abdomen is benign. Tender right lower quadrant. Medications/Allergies Home Medications ?Medication ?Instructions ?Recorded ?Confirmed ?Last Taken ?Type alendronate 70 mg tablet (Fosamax) 70 mg PO .weekly #4 tabs 06/06/25 09/20/25 09/19/25 Rx lisinopril 20 mg tablet See Rx Instructions .Route 06/06/25 09/20/25 09/19/25 Rx .COMPLEX #180 tabs spironolactone 25 mg tablet 25 mg PO DAILY #90 tabs 06/06/25 09/20/25 09/19/25 Rx carvedilol 6.25 mg tablet 6.25 mg PO DAILY #90 tabs 08/28/25 09/20/25 09/19/25 Rx cetirizine 10 mg tablet (Zyrtec) 10 mg PO DAILY 09/20/25 09/20/25 09/19/25 History doxylamin 12.5 mg-PSE 10 mg-DM 20 1 packet PO Q4H PRN Cold Symptoms 09/20/25 09/20/25 09/19/25 20:00 History mg-acetaminophen 650 mg oral pwdr pk (Symone-[place] Plus Cold-Flu) Allergies Allergy/AdvReac Type Severity Reaction Status Date / Time No Known Allergies Allergy Verified 08/29/25 14:21 Current Medications Generic Name Dose Route Start Last Admin Trade Name Freq PRN Reason Stop Dose Admin Sodium Chloride 1,000 mls @ 125 mls/hr 09/20/25 04:30 09/20/25 05:11 Sodium Chloride 0.9% IV 125 mls/hr .Q8H NIKKI Administration Sodium Chloride 1,000 mls @ 100 mls/hr 09/20/25 05:30 09/20/25 06:31 Sodium Chloride 0.9% IV Not Given .Q10H NIKKI Pantoprazole Sodium 40 mg 09/20/25 05:30 09/20/25 07:03 Pantoprazole 40 Mg Sdv IVP Not Given Q24H NIKKI PFSH Acute PFSH: Medical History Hypertension Family History Mother Heart problem Father Cancer Social History Smoking and tobacco/nicotine status: never used tobacco/nicotine Alcohol intake: current Vitals/I&O/Wt Last Vital Signs Temp 100.1 F H 09/20/25 02:18 Pulse 94 09/20/25 04:21 Resp 16 09/20/25 04:21 BP 93/62 09/20/25 04:21 Pulse Ox 92 09/20/25 04:21 O2 Del Method Nasal Cannula 09/20/25 04:21 O2 Flow Rate 1 09/20/25 04:21 09/19/25 09/20/25 09/20/25 22:59 06:59 14:59 Intake Total 1050 / 1050 Balance 1050 / 1050 Weight last 48 hrs Weight 180 lb Physical Exam Narrative: Chest: Unlabored breathing room air. No lymphadenopathy. Heart: Regular rate and rhythm. Abdomen: Soft, tender right lower quadrant. Nondistended. Non peritonitic. Data 09/20/25 02:00 09/20/25 02:00 Micro: Microbiology 09/20/25 01:55 Blood Culture - Preliminary Blood SPECIMEN COLLECTED 09/20/25 02:00 Blood Culture - Preliminary Blood SPECIMEN COLLECTED A&P Assessment and plan 1. Acute appendicitis: Plan: 70-year-old female who presents with acute appendicitis. Discussed the possibility that she may have a perforated appendicitis given the absence of a white count and history of several days of pain. I had an extensive discussion with the patient and answered all questions. I have discussed non operative/non procedural options and the patient still decides to proceed. Discussed risks and benefits of laparoscopic appendectomy possible open and patient decides to proceed. Patient understands the risks include bleeding, infection, small bowel injury, colonic injury, bladder injury, periappendiceal abscess, incisional hernia. Patient understands that if the appendix is perforated and it is difficult to resect we may just treat with peritoneal drain and antibiotics. Family and nurse present. PDMP PDMP Reviewed: Not Reviewed Coding Level of Care Code 49834 Diagnoses Acute appendicitis K35.80
[2025-09-20 08:31] LABS: Troponin 5 6HR 43.47 ng/L (0-10)
[2025-09-20 08:34] LABS: Troponin 5 6HR Delta -3.53 ng/L (0-12)
[2025-09-20] MEDS: piperacillin-tazobactam 3.375 GM in sodium chloride 0.9% (plus) 50 ML IV ×2 (09:42→17:47)
[2025-09-20 10:08] LABS: Iron 15 ug/dL (37-145); Total Iron Binding Capacity 208 mcg/dl; Unsaturated Iron Binding 193 ug/dL (112-347)
[2025-09-20 10:23] LABS: Vitamin B12 423 pg/mL (232-1245)
--- NOTE | 2025-09-20 11:50 | ANES.PREANE2 ---
Pre-Anesthetic Assessment Height/Weight: Height 5 ft 4 in Weight 190 lb 11.198 oz Temp Pulse Resp BP Pulse Ox O2 Del Method O2 Flow Rate 98.7 F 74 22 H 95/62 92 Nasal Cannula 2 09/20/25 09:05 09/20/25 09:05 09/20/25 09:05 09/20/25 09:05 09/20/25 09:05 09/20/25 09:05 09/20/25 09:05 Operation Date: 09/20/25 12:25 Proposed Procedures p Laparoscopic Appendectomy(Not Applicable) - Shakir Miller MD Anesthetic Plan ASA status: 4E Other: No prior issues with anesthesia, patient admitted today with acute appendicitis. Upon presentation lactic acid was 5.3 with a Pro-Cristofer of 6. Patient currently septic but not requiring any pressure medications at this time History of hypertension on carvedilol and lisinopril as well as spironolactone Labs from today reviewed and acceptable for procedure, CR 1.2 which appears to be about baseline Mildly elevated troponins, BNP 819. Patient currently does not have any lower extremity swelling, denies any chest pain, no shortness of breath. Patient reportedly had a clean cath 3 years ago but was diagnosed with Takotsubo at that time EKG showing sinus rhythm with incomplete RBBB and a possible old inferior [place]. No other EKG for comparison Spoke with patient family about risks of anesthesia today. Answered all questions. Patient accepts risk and would like to proceed at this time Plan for GETA Medications/Allergies Home Medications ?Medication ?Instructions ?Recorded ?Confirmed ?Last Taken ?Type alendronate 70 mg tablet (Fosamax) 70 mg PO .weekly #4 tabs 06/06/25 09/20/25 09/19/25 Rx lisinopril 20 mg tablet See Rx Instructions .Route 06/06/25 09/20/25 09/19/25 Rx .COMPLEX #180 tabs spironolactone 25 mg tablet 25 mg PO DAILY #90 tabs 06/06/25 09/20/25 09/19/25 Rx carvedilol 6.25 mg tablet 6.25 mg PO DAILY #90 tabs 08/28/25 09/20/25 09/19/25 Rx cetirizine 10 mg tablet (Zyrtec) 10 mg PO DAILY 09/20/25 09/20/2525 History doxylamin 12.5 mg-PSE 10 mg-DM 20 1 packet PO Q4H PRN Cold Symptoms 09/20/25 09/20/25 09/19/25 20:00 History mg-acetaminophen 650 mg oral pwdr pk (Symone-[place] Plus Cold-Flu) Allergies Allergy/AdvReac Type Severity Reaction Status Date / Time No Known Allergies Allergy Verified 08/29/25 14:21 Current Medications Generic Name Dose Route Start Last Admin Trade Name Freq PRN Reason Stop Dose Admin Sodium Chloride 1,000 mls @ 100 mls/hr 09/20/25 05:30 09/20/25 09:42 Sodium Chloride 0.9% IV 100 mls/hr .Q10H NIKKI Administration Piperacillin Sod/Tazobactam 50 mls @ 100 mls/hr 09/20/25 10:00 09/20/25 09:42 Sod 3.375 gm/ Sodium Chloride IV 100 mls/hr Q8H NIKKI Administration Protocol Pantoprazole Sodium 40 mg 09/20/25 05:30 09/20/25 07:03 Pantoprazole 40 Mg Sdv IVP Not Given Q24H NIKKI PFSH Anesthesia Medical History Hypertension Family History Mother Heart problem Father Cancer Social History Smoking and tobacco/nicotine status: never used tobacco/nicotine Alcohol intake: current Data Anesthesia 09/20/25 02:00 09/20/25 02:00 Short CBC 09/20/25 Range/Units 02:00 WBC 7.04 (3.29-11.43) 10^3/uL Hgb 14.10 (11.27-16.99) g/dL Hct 42.9 (36-47) % MCV 92.1 (85-98) fl Plt Count 172 (157-399) 10^3/cmm Neut % (Auto) 94.4 % Neut # (Auto) 6.65 (1.8-7.7) 10^3/uL BMP 09/20/25 02:00 Sodium 138 Potassium 3.7 Chloride 106 Carbon Dioxide 17 L BUN 18 Creatinine 1.2 H Glucose 118 H Calcium 8.1 L Cardiac Enzymes 09/20/25 09/20/25 09/20/25 Range/Units 02:00 03:40 08:00 Troponin T Baseline 47 H (0-10) ng/L Troponin T 120 Minute 60.93 H (0-10) ng/L Delta Troponin T 13.93 H* (0-10) ABS# Troponin T Hi Sens 6Hr 43.47 H (0-10) ng/L Troponin T Hi Sens 6Hr Delta -3.53 L (0-12) ng/L NT-Pro-B Natriuret Pep 819 H (0-125) pg/mL Liver Function 09/20/25 Range/Units 02:00 Total Bilirubin 0.8 (0.15-1.2) mg/dL AST 14 (0-32) U/L ALT 13 (0-33) U/L Alkaline Phosphatase 60 (35-105) U/L Albumin 3.6 (3.5-5.2) g/dL Urine 09/20/25 Range/Units 03:04 Urine Color Yellow (Yellow) Urine Appearance Clear (CLEAR) Urine pH 6.0 (5-7) Ur Specific [place] 1.019 (1.005-1.030) Urine Protein Trace A (Negative) Urine Glucose (UA) Negative (Normal) Urine Ketones Negative (Negative) Urine Nitrate Negative (Negative) Urine Bilirubin Negative (Negative) Ur Leukocyte Esterase Negative (Negative) Urine RBC 0-2 (0-2) /hpf Urine WBC 0-5 (0-5) /hpf COVID Results 09/20/25 03:46 SARS-CoV-2 (PCR) Negative Microbiology 09/20/25 01:55 Blood Culture - Preliminary Blood SPECIMEN COLLECTED 09/20/25 02:00 Blood Culture - Preliminary Blood SPECIMEN COLLECTED
--- NOTE | 2025-09-20 12:32 | PHA.VACGOAL ---
Vancomycin Goal - Goal Vancomycin Goal:: 15-20 mg/L Vancomycin Indication:: Pneumonia - Therapy Day of therpy:: Day []of [] . Actual body weight (kg): 190 lb 11.198 oz - Data Labs: WBC 7.04 10^3/uL (3.29-11.43) 09/20/25 02:00 RBC 4.66 10^6/uL (3.85-5.65) 09/20/25 02:00 Hgb 14.10 g/dL (11.27-16.99) 09/20/25 02:00 Hct 42.9 % (36-47) 09/20/25 02:00 MCV 92.1 fl (85-98) 09/20/25 02:00 MCH 30.3 pg (27-33) 09/20/25 02:00 MCHC 32.9 g/dL (30-55) 09/20/25 02:00 RDW 12.9 % (12.1-15.1) 09/20/25 02:00 Sodium 138 mmol/L (136-145) 09/20/25 02:00 Potassium 3.7 mmol/L (3.5-5.1) 09/20/25 02:00 Chloride 106 mmol/L (98-107) 09/20/25 02:00 Carbon Dioxide 17 mmol/L (22-29) L 09/20/25 02:00 Anion Gap 18.7 (5-19) 09/20/25 02:00 BUN 18 mg/dL (8-23) 09/20/25 02:00 Creatinine 1.2 mg/dL (0.5-0.9) H 09/20/25 02:00 GFR Calculation Not Reportable 09/20/25 02:00 Treatment plan:: new consult Regimen:: 750 MG Q12H
--- NOTE | 2025-09-20 12:52 | PC.NURSE ---
Pt left ICU for surgery.
--- NOTE | 2025-09-20 13:56 | PM.OP ---
Operative Report Date of procedure: September 20, 2025 Pre-op diagnosis: Acute appendicitis Post-op diagnosis: Perforated appendicitis with a periappendiceal abscess Post-op findings: Perforated appendicitis with periappendiceal abscess Procedure done: Laparoscopic appendectomy Implants: N/A Specimens removed/disposition: Appendix sent to pathology Pathology: Appendix sent to pathology Surgeon: Shakir Miller MD School Standards Coach: N/A Anesthesia: General Estimated blood loss (mL): 10 Complications: N/A Findings: Perforated appendicitis with a periappendiceal abscess Condition: stable Disposition: ICU Brief History: 70-year-old female admitted with acute appendicitis and pneumonia. Discussed risk and benefits and patient agreed to proceed with laparoscopic appendectomy possible open. Procedure: After having a discussion about risks and benefits and obtaining consent from POA, patient was brought to the OR. SCDs were functioning prior to intubation. Antibiotics administered 5 minutes prior to incision. General anesthesia was administered. Arms were tucked. A phoenix catheter was placed. The abdomen was prepped and draped in the usual sterile fashion. Insufflation was achieved using a Veress needle at Sullivan's point (15mmHg). A 5mm port was placed at the umbilicus using an optical view port. Then a 5mm port was placed suprapubically, and a 12mm port was placed in the left lower quadrant. The abdomen was inspected and no injuries were noted. Patient was placed in Trendelenburg and the table was rotated left. Using atraumatic bowel graspers the small bowel was placed on the left side of the abdomen, revealing the cecum and inflammed and perforated appendix and a periappendiceal abscess. The appendix was dissected off the pelvic side wall bluntly. The appendix was grasped and the mesoappendix was taken down using a Ligasure. The base of the appendix was found to be intact. I proceeded to staple off the appendix at its base using a laparoscopic stapler with a blue load. The appendix was then retrieved using an endocatch bag. The staple line on the cecum was inspected, and found to be intact. The abdomen was washed out with 1 L normal saline. A 19 Pashto Trey drain was left in the right paracolic gutter. I proceeded to secure the drain with 3-0 nylon. The abdomen was desufflated and skin was closed using 4-0 monocryl and surgical glue. Phoenix was removed at the end of the case. The patient woke up from anesthesia and was transferred to PACU without any complications
--- NOTE | 2025-09-20 14:20 | PC.NURSE ---
Pt arrives back to ICU from surgery. 2lpm/NC noted. JUANA drain noted on left lower abdomen. Abdomen x4 hypoactive.
[2025-09-20] MEDS: diphenhydrAMINE 50 mg/mL SDV 1mL 25 MG IVP (16:02)
[2025-09-20 16:20] LABS: MRSA PCR OZH (swab) NOT DETECTED (Not Detecte)
--- NOTE | 2025-09-20 18:26 | PC.NURSE ---
Shift summary: Pt has rested in bed this shift. She made two trips to bathroom prior to surgery. Appendectomy done today, she has a drain in the lower left abdomen that is draining serosanginous fluid. Sinus rhtyhm noted on monitor. She has had some soft BP this evening, fluid bolus infusing at this time. Urine output is low; 225ml. Bowel sounds hypoactive post surgery. She has reported mild discomfort but has declined offered pain meds.
[2025-09-21] VITALS (22 sets, daily range): BP systolic 92–118; BP diastolic 58–82; PULSE 59–86; RESP 14–44; TEMP 36.7–37.8; O2SAT 89–96
[2025-09-21] MEDS: piperacillin-tazobactam 3.375 GM in sodium chloride 0.9% (plus) 50 ML IV ×3 (01:30→17:48)
[2025-09-21] MEDS: pantoprazole 40 mg SDV IVP (05:09)
[2025-09-21 05:21] LABS: Hematocrit 40.4 % (36-47); Hemoglobin 12.80 g/dL (11.27-16.99); Mean Corpuscular HGB Conc 31.7 g/dL (30-55); Mean Corpuscular Hemoglobin 30.0 pg (27-33); Mean Corpuscular Volume 94.8 fl (85-98); Nucleated Red Blood Cells % 0 %; Platelet Count 147 10^3/cmm (157-399); Red Blood Count 4.26 10^6/uL (3.85-5.65); White Blood Count 9.14 10^3/uL (3.29-11.43)
[2025-09-21 05:51] LABS: Alanine Aminotransferase 14 U/L (0-33); Albumin Level 3.0 g/dL (3.5-5.2); Alkaline Phosphatase 50 U/L (35-105); Anion Gap 14.3 (5-19); Aspartate Amino Transferase 14 U/L (0-32); Blood Urea Nitrogen 13 mg/dL (8-23); Calcium 6.9 mg/dL (8.5-10.5); Carbon Dioxide 17 mmol/L (22-29); Chloride 113 mmol/L (98-107); Globulin 2.3 g/dL (1.3-4.6); Glucose 113 mg/dL (65-115); Magnesium 2.2 mg/dL (1.7-2.3); Osmolality Calculated 291 mOsm/kg (285-295); Potassium 4.3 mmol/L (3.5-5.1); Sodium 140 mmol/L (136-145); Total Protein 5.3 g/dL (6.6-8.7)
[2025-09-21 06:25] LABS: Slide Review Slide Review Perform
--- NOTE | 2025-09-21 10:24 | P.PN_ITS ---
Subjective 2 Subjective: No acute events overnight Pain-free Drain serous Incisions clean dry intact Vitals/I&O/Wt Last Vital Signs Temp 98.7 F 09/21/25 07:00 Pulse 78 09/21/25 10:00 Resp 44 H 09/21/25 10:00 BP 110/58 09/21/25 10:00 Pulse Ox 91 09/21/25 10:00 O2 Del Method Room Air 09/21/25 10:00 O2 Flow Rate 2 09/20/25 18:00 09/20/25 09/21/25 09/21/25 22:59 06:59 14:59 Intake Total 2050 / 5150 2000.000 / 7150.000 1261.667 / 1261.667 Output Total 365 / 475 800 / 1275 275 / 275 Balance 1685 / 4675 1200.000 / 5875.000 986.667 / 986.667 Weight last 48 hrs Weight 190 lb 11.198 oz Weight 180 lb Physical Exam 2 Narrative: Chest: Unlabored breathing room air. No lymphadenopathy. Heart: Regular rate and rhythm. Abdomen: Soft, nontender, nondistended. Incisions clean dry intact. Drain serosanguineous Urinary Catheter Management: Mishra: Cath Placed During This Visit: yes, but has since been removed by the nurse Reason for Continuing Indwelling Catheter: Perioperative Use in Selected Surgeries Urinary Catheter Date of Insertion: 09/20/25 Urinary Catheter Time of Insertion: 13:00 Date Urinary Catheter Removed: 09/21/25 Time Urinary Catheter Discontinued: 10:06 Data 09/21/25 04:45 09/21/25 04:45 Micro: Microbiology 09/20/25 01:55 Blood Culture - Preliminary Blood NEGATIVE TO DATE 09/20/25 02:00 Blood Culture - Preliminary Blood NEGATIVE TO DATE A&P Assessment and plan 1. Perforated appendicitis: Plan: 70-year-old female who presented with perforated appendicitis. Status post lap appendectomy and peritoneal drain placement. Doing well. Advance to regular diet. From a surgical perspective ready to be discharged with a drain. Follow-up in 2 weeks in the office. Recommend a total of a 7-day course of antibiotics for perforated appendicitis. PDMP PDMP Reviewed: Not Reviewed Attestations 2 Medical Necessity Statement*: N/A Coding Level of Care Code 36581 Diagnoses Perforated appendicitis K35.32
--- NOTE | 2025-09-21 13:50 | P.PN_ITS ---
Subjective 2 Subjective: No acute events overnight. Today morning patient seen sitting up in chair. Denies any nausea, vomiting, headache. Has remained hemodynamically stable. States feeling a lot better. Diet has been advanced to regular as per surgical team. Remains on room air. Drain output over 90 cc in last 24 hours Vitals/I&O/Wt Last Vital Signs Temp 98.7 F 09/21/25 07:00 Pulse 78 09/21/25 10:00 Resp 44 H 09/21/25 10:00 BP 110/58 09/21/25 10:00 Pulse Ox 91 09/21/25 10:00 O2 Del Method Room Air 09/21/25 10:00 O2 Flow Rate 2 09/20/25 18:00 09/20/25 09/21/25 09/21/25 22:59 06:59 14:59 Intake Total 2050 / 5150 2000.000 / 7150.000 1311.667 / 1311.667 Output Total 365 / 475 800 / 1275 275 / 275 Balance 1685 / 4675 1200.000 / 5875.000 1036.667 / 1036.667 Weight last 48 hrs Weight 86.5 kg Weight 81.647 kg Physical Exam 2 Narrative: General: No acute distress, AO x3 HEENT: PERRLA, pupils bilaterally equal and reactive Chest: Normal vesicular breath sounds, no added sounds, equal good air entry bilaterally CVS: S1-S2 regular, no murmurs, no tachycardia, no gallops, no rubs Abdomen: Soft, nontender, no organomegaly, bowel sounds present, surgical dressing clean, drain in place Neuro: No focal deficits, no facial deformity, AO x3, power 5/5 in all limbs Urinary Catheter Management: Mishra: Cath Placed During This Visit: yes, but has since been removed by the nurse Reason for Continuing Indwelling Catheter: Perioperative Use in Selected Surgeries Urinary Catheter Date of Insertion: 09/20/25 Urinary Catheter Time of Insertion: 13:00 Date Urinary Catheter Removed: 09/21/25 Time Urinary Catheter Discontinued: 10:06 Data 09/21/25 04:45 09/21/25 04:45 Micro: Microbiology 09/20/25 01:55 Blood Culture - Preliminary Blood NEGATIVE TO DATE 09/20/25 02:00 Blood Culture - Preliminary Blood NEGATIVE TO DATE A&P Assessment and plan 1. Sepsis: 2. Acute appendicitis: 3. Perforated appendicitis: 4. Elevated troponin: 5. Hypomagnesemia: 6. Obesity (BMI 30-39.9): 7. Age-related osteoporosis without current pathological fracture: 8. Hypertension: Plan: Plan for the day: Sepsis: In setting of acute appendicitis with perforation. Post appendectomy. Appreciate surgical recommendations. Advance diet as per surgical team. Goal blood pressure less than 140/90 millimeters Hg with mean over 65. Blood pressure is at goal. Discontinue IV fluids. DC Mishra catheter. Out of bed to chair. Incentive spirometry. Follow-up culture results. Continue with IV Zosyn for now. MRSA swab negative. Elevated troponin on admission most likely in setting of type II HI/demand ischemia. Check echocardiogram. Patient denies any active chest pain. Appreciate A1c, lipid panel. TIFFANY resolved. Monitor urine output. Transfer to [facility] floor. Discharge summary: Plan to discharge in next 24 to 48 hours if patient remains hemodynamically stable on oral antibiotics if able to tolerate diet well. PDMP PDMP Reviewed: Not Reviewed Attestations 2 Medical Necessity Statement*: Requires further hospitalization for management of sepsis in setting of perforated appendicitis post appendectomy Diagnoses Sepsis A41.9; R65.20; J96.01 Acute respiratory failure type: with hypoxia Sepsis acute organ dysfunction status: with acute organ dysfunction Sepsis type: sepsis due to unspecified organism Severe sepsis acute organ dysfunction type: acute respiratory failure Severe sepsis shock status: without septic shock Acute appendicitis K35.30 Acute appendicitis type: with localized peritonitis Appendicitis abscess presence: without abscess Appendicitis gangrene presence: without gangrene Appendicitis perforation presence: without perforation Perforated appendicitis K35.32 Elevated troponin R79.89 Hypomagnesemia E83.42 Obesity (BMI 30-39.9) E66.9 Age-related osteoporosis without current pathological fracture M81.0 Osteoporosis type: age-related Presence of current pathological fracture: without current pathological fracture Hypertension I10
--- NOTE | 2025-09-21 13:56 | USCV_ITS ---
Jeri Bowling Age: 70 Gender: F : 1955 Exam Date: 09/21/2025 18:32 Ordering Phys: Dexter Haq MD Technologist: SHANNAN Exam Location: [facility] [place] Indication: elevated troponin s/p appendectomy today. History of HTN, obesity. BP: 112 / 73 HR: 90 Rhythm: Sinus Technical Quality: Adequate MEASUREMENTS (Male / Female) Normal Values 2D ECHO LV Diastolic Diameter PLAX 3.7 cm 4.2 - 5.9 / 3.9 - 5.3 cm IVS Diastolic Thickness 1.7 cm 0.6 - 1.0 / 0.6 - 0.9 cm IVS Systolic Thickness 2.1 cm LVPW Diastolic Thickness 1.7 cm 0.6 - 1.0 / 0.6 - 0.9 cm LVPW Systolic Thickness 1.4 cm LVOT Diameter 2.0 cm LV Ejection Fraction 2D Teich 58.4 % LV Ejection Fraction MOD 4C 69.2 % LV Ejection Fraction MOD 2C 54.3 % LV Ejection Fraction 2C AL 53.0 % LA Diameter 3.4 cm Aorta at Sinotubular Diameter 3.2 cm IVC Diameter 2.2 cm M-MODE LA Ao Ratio MM 1.0 AV Cusp Separation MM 2.3 cm DOPPLER AV Peak Velocity 206.0 cm/s LVOT Peak Velocity 124.0 cm/s AV Area Cont Eq vti 2.1 cm squared AV Area Cont Eq pk 1.9 cm squared MV Peak Velocity 114.0 cm/s MV Area PHT 3.8 cm squared Mitral E to A Ratio 0.9 TV Peak Velocity 287.0 cm/s TR Peak Velocity 320.0 cm/s TR Peak Gradient 41.0 mmHg TV Peak E Velocity 65.0 cm/s PV Peak Velocity 128.7 cm/s FINDINGS Left Ventricle Normal left ventricular size and systolic function, EF 69%.no regional wall motion abnormalities. Mild left ventricular hypertrophy. Grade I/IV diastolic dysfunction (abnormal relaxation filling pattern), normal to mildly elevated filling pressures. Right Ventricle Normal right ventricular size and systolic function. Right Atrium Normal right atrial size. Left Atrium Mildly increased left atrial size. IA Septum Normal appearance of the interatrial septum. Mitral Valve Structurally normal mitral valve. Aortic Valve Thickened aortic valve. Aortic valve sclerosis. Tricuspid Valve Mild tricuspid valve regurgitation. Estimated pulmonary artery peak systolic pressure 44 mmHg Pulmonic Valve Structurally normal pulmonic valve. Pericardium No pericardial effusion. Aorta Normal diameter of the aortic root and ascending thoracic aorta. IVC Normal inferior vena cava. CONCLUSIONS Normal left ventricular size and systolic function, EF 69%.no regional wall motion abnormalities. Mild left ventricular hypertrophy. Grade I/IV diastolic dysfunction (abnormal relaxation filling pattern), normal to mildly elevated filling pressures. Aortic valve sclerosis. Mild tricuspid valve regurgitation. Estimated pulmonary artery peak systolic pressure 44 mmHg. There is no pericardial effusion. There are no intracardiac masses. No similar previous studies are available for comparison Dr Anthony Cantrell MD FACC (Electronically Signed) Final Date: 21 September 2025 22:41 S
[2025-09-22] VITALS: BP 116/77; PULSE 90; RESP 15; TEMP 37; O2SAT 90
[2025-09-22] MEDS: piperacillin-tazobactam 3.375 GM in sodium chloride 0.9% (plus) 50 ML IV (02:30)
[2025-09-22 05:00] VITALS: BP 133/85; PULSE 81; RESP 16; TEMP 36.7; O2SAT 90
[2025-09-22 05:18] LABS: Hematocrit 37.2 % (36-47); Hemoglobin 12.10 g/dL (11.27-16.99); Mean Corpuscular HGB Conc 32.5 g/dL (30-55); Mean Corpuscular Hemoglobin 30.6 pg (27-33); Mean Corpuscular Volume 94.2 fl (85-98); Nucleated Red Blood Cells % 0 %; Platelet Count 162 10^3/cmm (157-399); Red Blood Count 3.95 10^6/uL (3.85-5.65); White Blood Count 8.45 10^3/uL (3.29-11.43)
[2025-09-22] MEDS: pantoprazole 40 mg SDV IVP (05:25)
[2025-09-22 05:27] VITALS: BMI 31.4
[2025-09-22 05:29] VITALS: PULSE 68
[2025-09-22 05:37] LABS: Magnesium 2.1 mg/dL (1.7-2.3)
[2025-09-22 05:43] LABS: Alanine Aminotransferase 12 U/L (0-33); Albumin Level 3.1 g/dL (3.5-5.2); Alkaline Phosphatase 59 U/L (35-105); Anion Gap 13.0 (5-19); Aspartate Amino Transferase 13 U/L (0-32); Blood Urea Nitrogen 17 mg/dL (8-23); Calcium 8.0 mg/dL (8.5-10.5); Carbon Dioxide 19 mmol/L (22-29); Chloride 113 mmol/L (98-107); Globulin 2.3 g/dL (1.3-4.6); Glucose 132 mg/dL (65-115); Osmolality Calculated 295 mOsm/kg (285-295); Potassium 4.0 mmol/L (3.5-5.1); Sodium 141 mmol/L (136-145); Total Protein 5.4 g/dL (6.6-8.7)
[2025-09-22 07:36] VITALS: BP 126/74; PULSE 76; PULSE 81; RESP 16; TEMP 36.9; O2SAT 90; O2SAT 91
--- NOTE | 2025-09-22 07:37 | PM.DCS ---
Discharge Providers Date of Admission: 09/20/25 04:28 Date of Discharge: September 22, 2025 Attending Provider at Admission: Bety Sweeney MD Attending Provider at Discharge: Dexter Haq MD Consults: Surgery: Dr. Miller Primary Care Provider: STELLA Galvin Diagnoses at Discharge Discharge Diagnosis 1. Sepsis: 2. Acute appendicitis: 3. Perforated appendicitis: 4. Elevated troponin: 5. Hypomagnesemia: 6. Obesity (BMI 30-39.9): 7. Age-related osteoporosis without current pathological fracture: 8. Hypertension: Reason for Visit Reason for Visit: flu like symptoms Brief History: Per HPI Jeri Bowling is a 70 year old female with medical history significant for morbid obesity, hypertension, osteoporosis who presented to the emergency room with history of febrile illness with associated nausea and vomiting with nausea. Patient had been coughing cough prior to her presentation to the hospital. She presented to the emergency room for further evaluation. Upon evaluation lactic acid was elevated at 5.3 procalcitonin elevated at 6. Patient was never hypotensive in the emergency room and received a liter of fluid normal saline and route and a liter in the emergency room. Patient has been pancultured and had been given Zosyn and vancomycin in the emergency room. I would like for patient to be placed in ICU. Patient indeed does have sepsis Imaging has shown a radiographic sign of acute appendicitis the emergency room attending had spoken to the surgeon on-call reference acute appendicitis, the surgeon wanted the patient be admitted to hospitalist service and he will call and follow-up in the morning . Hospital Course Hospital Course Patient was admitted to the hospital for evaluation and management of severe sepsis in setting of perforated appendicitis. Surgery was consulted and she underwent laparoscopic appendectomy on 09/20. She responded well to the treatment. During hospitalization cultures were negative. She has been tolerating regular diet well for next 24 hours. Has remained hemodynamically stable. Home O2 evaluation has been done prior to discharge. She has been discharged in medically stable condition and advised to follow-up with her primary care provider within next 1 week. She is to hold off on taking her Coreg and lisinopril for now. Lisinopril to be restarted once blood pressures consistently over 120 mmHg and Coreg to be restarted once blood pressure consistently over 140 mmHg after starting lisinopril. She is to be on oral Augmentin and Levaquin for next 5 days. Physical Exam Narrative: General: No acute distress, AO x3 HEENT: PERRLA, pupils bilaterally equal and reactive Chest: Normal vesicular breath sounds, no added sounds, equal good air entry bilaterally CVS: S1-S2 regular, no murmurs, no tachycardia, no gallops, no rubs Abdomen: Soft, nontender, no organomegaly, bowel sounds present, surgical dressing clean, drain in place Neuro: No focal deficits, no facial deformity, AO x3, power 5/5 in all limbs Urinary Catheter Management: Mishra: Cath Placed During This Visit: yes, but has since been removed by the nurse Reason for Continuing Indwelling Catheter: Perioperative Use in Selected Surgeries Urinary Catheter Date of Insertion: 09/20/25 Urinary Catheter Time of Insertion: 13:00 Date Urinary Catheter Removed: 09/21/25 Time Urinary Catheter Discontinued: 10:06 Discharge Data Studies Completed and Pending Completed Studies During Hospitalization Category Date Time Status CT PE [CT Angio Chest + Abdomen Pelvis w/ contrast; Cat Scan 09/20/25 03:09 Completed [id number] + [id number]] Stat XR chest 1V portable [id number] Stat Exams 09/20/25 01:23 Completed CV. echo complete* [id number] Routine Ultrasound 09/21/25 13:56 Completed Pending at discharge Category Date Time Status Blood Culture Stat Lab 09/20/25 01:55 Results MAG [Magnesium] AM LABS Lab 09/23/25 04:00 Ordered Pathology: Surgical [PTH] Routine Pth 09/20/25 13:52 Received Radiology Impressions Chest X-Ray 09/20/25 01:23 IMPRESSION: No acute findings. Chest/Abdomen/Pelvis CT 09/20/25 03:09 IMPRESSION: 1. Mild consolidations at the lung bases, concerning for mild multilobar pneumonia. Superimposed atelectasis. No pleural effusion or pneumothorax. 2. No pulmonary embolism. IMPRESSION: Positive for appendicitis, consisting of a distended appendix, measuring up to 11 mm, with mild-moderate surrounding inflammation. COMMENTS: Consistent with the [employer]'s Incidental Findings Committee white paper (J Am Ellis Radiol 2018): Any incidental renal lesion less than 1 cm or classified as too small to characterize, or any incidental cystic renal lesion characterized as simple-appearing, is likely benign. No follow-up imaging is recommended for these lesions per consensus recommendations based on imaging criteria. Microbiology 09/20/25 01:55 Blood Blood Culture - Preliminary NEGATIVE TO DATE 09/20/25 02:00 Blood Blood Culture - Preliminary NEGATIVE TO DATE Laboratory Results WBC 8.45 10^3/uL (3.29-11.43) 09/22/25 04:18 RBC 3.95 10^6/uL (3.85-5.65) 09/22/25 04:18 Hgb 12.10 g/dL (11.27-16.99) 09/22/25 04:18 Hct 37.2 % (36-47) 09/22/25 04:18 MCV 94.2 fl (85-98) 09/22/25 04:18 MCH 30.6 pg (27-33) 09/22/25 04:18 MCHC 32.5 g/dL (30-55) 09/22/25 04:18 RDW 13.4 % (12.1-15.1) 09/22/25 04:18 Plt Count 162 10^3/cmm (157-399) 09/22/25 04:18 MPV 11.3 fL (7.4-10.4) H 09/22/25 04:18 Neut % (Auto) 82.8 % 09/22/25 04:18 Lymph % (Auto) 11.1 % 09/22/25 04:18 Ocean % (Auto) 5.4 % 09/22/25 04:18 Eos % (Auto) 0.1 % 09/22/25 04:18 Baso % (Auto) 0.2 % 09/22/25 04:18 Neut # (Auto) 6.99 10^3/uL (1.8-7.7) 09/22/25 04:18 Lymph # (Auto) 0.9 10^3/uL (0.8-4.8) 09/22/25 04:18 Ocean # (Auto) 0.5 10^3/uL (0.2-0.9) 09/22/25 04:18 Eos # (Auto) 0.0 10^3/uL (0.0-0.8) 09/22/25 04:18 Baso # (Auto) 0.0 10^3/uL (0.0-0.1) 09/22/25 04:18 Nucleated RBC % (auto) 0 % 09/22/25 04:18 Nucleated RBCs # 0.0 /100WBC 09/22/25 04:18 Sodium 141 mmol/L (136-145) 09/22/25 04:18 Potassium 4.0 mmol/L (3.5-5.1) 09/22/25 04:18 Chloride 113 mmol/L (98-107) H 09/22/25 04:18 Carbon Dioxide 19 mmol/L (22-29) L 09/22/25 04:18 Anion Gap 13.0 (5-19) 09/22/25 04:18 BUN 17 mg/dL (8-23) 09/22/25 04:18 Creatinine 0.9 mg/dL (0.5-0.9) 09/22/25 04:18 GFR Calculation Not Reportable 09/22/25 04:18 Glucose 132 mg/dL (65-115) H 09/22/25 04:18 Calculated Osmolality 295 mOsm/kg (285-295) 09/22/25 04:18 Lactic Acid 5.3 mmol/L (0.5-2.2) H* 09/20/25 02:00 Lactic Acid (Sepsis) 1.5 mmol/L (0.5-2.2) 09/20/25 05:40 Calcium 8.0 mg/dL (8.5-10.5) L 09/22/25 04:18 Phosphorus 2.5 mg/dL (2.5-4.5) 09/21/25 04:45 Magnesium 2.1 mg/dL (1.7-2.3) 09/22/25 04:18 Iron 15 ug/dL (37-145) L 09/20/25 02:00 TIBC 208 mcg/dl 09/20/25 02:00 % Saturation 7.2 % (20-50) L 09/20/25 02:00 Unsat Iron Binding 193 ug/dL (112-347) 09/20/25 02:00 Total Bilirubin 0.3 mg/dL (0.15-1.2) 09/22/25 04:18 AST 13 U/L (0-32) 09/22/25 04:18 ALT 12 U/L (0-33) 09/22/25 04:18 Alkaline Phosphatase 59 U/L (35-105) 09/22/25 04:18 Troponin T Baseline 47 ng/L (0-10) H 09/20/25 02:00 Troponin T 120 Minute 60.93 ng/L (0-10) H 09/20/25 03:40 Delta Troponin T 13.93 ABS# (0-10) H* 09/20/25 03:40 Troponin T Hi Sens 6Hr 43.47 ng/L (0-10) H 09/20/25 08:00 Troponin T Hi Sens 6Hr Delta -3.53 ng/L (0-12) L 09/20/25 08:00 NT-Pro-B Natriuret Pep 819 pg/mL (0-125) H 09/20/25 02:00 Total Protein 5.4 g/dL (6.6-8.7) L 09/22/25 04:18 Albumin 3.1 g/dL (3.5-5.2) L 09/22/25 04:18 Globulin 2.3 g/dL (1.3-4.6) 09/22/25 04:18 Lipase 39 U/L (13-60) 09/20/25 02:00 Vitamin B12 423 pg/mL (232-1245) 09/20/25 02:00 Folate 16.2 ng/mL (4.8-37.3) 09/21/25 04:45 Procalcitonin 5.81 ng/mL (0-0.5) H 09/20/25 02:00 Urine Color Yellow (Yellow) 09/20/25 03:04 Urine Appearance Clear (CLEAR) 09/20/25 03:04 Urine pH 6.0 (5-7) 09/20/25 03:04 Ur Specific Hendricks 1.019 (1.005-1.030) 09/20/25 03:04 Urine Protein Trace (Negative) A 09/20/25 03:04 Urine Glucose (UA) Negative (Normal) 09/20/25 03:04 Urine Ketones Negative (Negative) 09/20/25 03:04 Urine Blood Negative (Negative) 09/20/25 03:04 Urine Nitrate Negative (Negative) 09/20/25 03:04 Urine Bilirubin Negative (Negative) 09/20/25 03:04 Urine Urobilinogen 1.0 mg/dL (Negative) 09/20/25 03:04 Ur Leukocyte Esterase Negative (Negative) 09/20/25 03:04 Urine RBC 0-2 /hpf (0-2) 09/20/25 03:04 Urine WBC 0-5 /hpf (0-5) 09/20/25 03:04 Ur Squamous Epith Cells 0-5 /hpf (0-5) 09/20/25 03:04 Amorphous Sediment Not Reportable 09/20/25 03:04 Urine Bacteria None seen /hpf (NONE) 09/20/25 03:04 Hyaline Casts 2.46 /lpf 09/20/25 03:04 Nasal MRSA (PCR) Not detected (Not Detecte) 09/20/25 14:30 Influenza A (PCR) Negative (Negative) 09/20/25 03:46 Influenza Type B (PCR) Negative (Negative) 09/20/25 03:46 RSV (PCR) Negative (Negative) 09/20/25 03:46 SARS-CoV-2 (PCR) Negative (Negative) 09/20/25 03:46 Vitals Last Vital Signs Temp 98.4 F 09/22/25 07:36 Pulse 81 09/22/25 07:36 Resp 16 09/22/25 07:36 BP 126/74 09/22/25 07:36 Pulse Ox 91 09/22/25 07:36 O2 Del Method Nasal Cannula 09/22/25 07:36 O2 Flow Rate 2 09/22/25 07:36 Discharge Plan Discharge Patient Disposition: Home Condition: Stable Prescriptions: New levofloxacin 750 mg tablet 750 mg PO Q24H 5 Days Qty: 5 0RF amoxicillin-pot clavulanate 875-125 mg tablet 1 tab PO BID 5 Days Qty: 10 0RF Continued alendronate [Fosamax] 70 mg tablet 70 mg PO .weekly Qty: 4 2RF cetirizine [Zyrtec] 10 mg Tablet 10 mg PO DAILY [place] Plus Cold-Flu 12.5-10-20-650 mg Powder In Packet 1 packet PO Q4H PRN (Reason: Cold Symptoms) Rx Instructions: DNExceed 5 doses/24h Discontinued spironolactone 25 mg tablet 25 mg PO DAILY Qty: 90 1RF No Action lisinopril 20 mg tablet See Rx Instructions .ROUTE .COMPLEX Qty: 180 1RF Dose Instruction: TAKE 1 TABLET BY MOUTH TWICE DAILY Rx Instructions: TAKE 1 TABLET BY MOUTH TWICE DAILY carvedilol 6.25 mg tablet 6.25 mg PO DAILY Qty: 90 0RF Other Ambulatory Orders: DME: Oxygen (Order) Location: None Selected Ordered By: Dexter Haq Referrals: Shakir Miller MD [Physician, General Surgery] - 10/05/25 8:35 am Referral Note: Bernadette Singh FNP [Primary Care Provider, [facility]] - 10/05/25 10:00 am Referral Note: Patient Instructions: Amoxicillin/Clavulanate Potassium (By mouth) (Augmentin, Augmentin..., Levofloxacin (By mouth), Appendicitis (GEN), Acute Wound Care (DC), Open Appendectomy (DC), Opioid Safety, Post Anesthesia Care, Patient Portal & Alexander Instructions Activity Restrictions/Additional Instructions: Do not take your antihypertensive including Coreg and lisinopril for now. Keep checking your blood pressure daily at home maintain a blood pressure diary. Follow-up with a primary care provider with a blood pressure diary within next 1 week for further adjustment of antihypertensive. You can restart your lisinopril once your blood pressures consistently over 130 mmHg. Restart Coreg once your blood pressures consistently over 140 mmHg. Do not start lisinopril and Coreg on the same day. Take Augmentin and Levaquin which are the antibiotics for next 5 days. Patient to be discharged after surgical clearance, Leaving dressing intact and strip and empty drain at least once a day and as needed. Discharge Attestations Time Spent in Discharge Care*: greater than 30 min Specific Discharge Activities: educating patient, educating and/or supporting family/caregiver, discussing with pcp/other providers, discussing with insurance case manager/social workers/dc planners, documenting/other paperwork and evaluating patient/reviewing data Status at Discharge: Cognitive status at discharge: cognitively intact, Behavioral status at discharge: cooperative, Functional status at discharge: independent ambulation, Overall status at discharge: patient is progressing back to baseline Quality Metrics Clinical Quality Measures [ No reported AMI, CVA or VTE this stay] Coding Level of Care Code 91237 Total time (in minutes) for Discharge: 65 Diagnoses Sepsis A41.9; R65.20; J96.01 Acute respiratory failure type: with hypoxia Sepsis acute organ dysfunction status: with acute organ dysfunction Sepsis type: sepsis due to unspecified organism Severe sepsis acute organ dysfunction type: acute respiratory failure Severe sepsis shock status: without septic shock Acute appendicitis K35.30 Acute appendicitis type: with localized peritonitis Appendicitis abscess presence: without abscess Appendicitis gangrene presence: without gangrene Appendicitis perforation presence: without perforation Perforated appendicitis K35.32 Elevated troponin R79.89 Hypomagnesemia E83.42 Obesity (BMI 30-39.9) E66.9 Age-related osteoporosis without current pathological fracture M81.0 Osteoporosis type: age-related Presence of current pathological fracture: without current pathological fracture Hypertension I10
--- NOTE | 2025-09-22 08:57 | PC.SOCIAL ---
IMM Update pg 2 of IMM updated and reviewed w/ patient. Copy provided and copy dated, initialed and placed in chart.
[2025-09-22 09:14] VITALS: O2SAT 87; O2SAT 92
[2025-09-22 11:40] VITALS: BP 118/62; PULSE 83; RESP 16; TEMP 36.9; O2SAT 91
--- NOTE | 2025-09-22 11:47 | P.PN_ITS ---
Subjective 2 Subjective: No acute events overnight No abdominal pain Drain has some purulence, 5 cc in drain Tolerating a diet Vitals/I&O/Wt Last Vital Signs Temp 98.4 F 09/22/25 11:40 Pulse 83 09/22/25 11:40 Resp 16 09/22/25 11:40 BP 118/62 09/22/25 11:40 Pulse Ox 91 09/22/25 11:40 O2 Del Method Room Air 09/22/25 11:40 O2 Flow Rate 2 09/22/25 09:14 09/21/25 09/22/25 09/22/25 22:59 06:59 14:59 Intake Total 290 / 1951.667 120 / 2071.667 290 / 290 Output Total 478 Balance 287 / 1473.667 120 / 1593.667 290 / 290 Weight last 48 hrs Weight 183 lb 4 oz Physical Exam 2 Narrative: Chest: Unlabored breathing room air. No lymphadenopathy. Heart: Regular rate and rhythm. Abdomen: Soft, appropriately tender, nondistended. Incisions clean dry intact. Drain with 5 cc of purulent fluid. Urinary Catheter Management: Mishra: Cath Placed During This Visit: yes, but has since been removed by the nurse Reason for Continuing Indwelling Catheter: Perioperative Use in Selected Surgeries Urinary Catheter Date of Insertion: 09/20/25 Urinary Catheter Time of Insertion: 13:00 Date Urinary Catheter Removed: 09/21/25 Time Urinary Catheter Discontinued: 10:06 Data 09/22/25 04:18 09/22/25 04:18 A&P Assessment and plan 1. Perforated appendicitis: Plan: 70-year-old female who presented with perforated appendicitis. Successful laparoscopic appendectomy. Left peritoneal drain in the left paracolic gutter. Recommended 7 days of antibiotics. Keep drain until follow-up in 2 weeks. Rest of care per hospitalist. From a surgical perspective cleared for discharge. PDMP PDMP Reviewed: Not Reviewed Attestations 2 Medical Necessity Statement*: N/A Coding Level of Care Code 80134 Diagnoses Perforated appendicitis K35.32
== END 2025-09-22 11:45 | disposition home or self-care (01) | DRG 853 ==
LOC: ER 04:55 → ICU 06:57 → MEDSURG 09-21 21:24
PROVIDERS: Student in an Organized Health Care Education/Training Program; Admitting Provider Internal Medicine; Emergency Provider Emergency Medicine; PCP Nurse Practitioner Family; Visit Provider Student in an Organized Health Care Education/Training Program
PROC: 0DTJ4ZZ Resection of Appendix, Percutaneous Endoscopic Approach (ICD-10-PCS; CPT 44970; principal; 2025-09-20 12:15)
DX: A41.9 Sepsis, unspecified organism (principal); I21.4 Non-ST elevation (NSTEMI) myocardial infarction; K35.33 Acute appendicitis with perforation, localized peritonitis, and gangrene, with abscess; J18.9 Pneumonia, unspecified organism; R65.20 Severe sepsis without septic shock; E83.42 Hypomagnesemia; E66.01 Morbid (severe) obesity due to excess calories; Z68.31 Body mass index [BMI] 31.0-31.9, adult; M81.0 Age-related osteoporosis without current pathological fracture; I10 Essential (primary) hypertension
CPT/HCPCS: 36415; 51702; 71045; 71275; 74177; 80053; 81001; 82607; 82746; 83540; 83550; 83605; 83690; 83735; 83880; 84100; 84145; 84484; 85025; 87040; 87637; 88304; 93005; 93306; 94760; 96365; 96366; 96367; 99285; A4216; J1100; J1171; J1200; J2405; J2470; J2543; J2704; J3010; J3373; J3475; J3490; J7030; J7120; J9999

== ENCOUNTER → 2025-10-05 08:15 | Outpatient (BNVA) | payer MEDICARE, SELFPAY | PROVIDERS: PCP Nurse Practitioner Family; Visit Provider Student in an Organized Health Care Education/Training Program | DX: Z98.890 Other specified postprocedural states (principal); Z90.49 Acquired absence of other specified parts of digestive tract | CPT/HCPCS: 99024 ==